=== PATIENT | male | born 1945 | race Caucasian/White ===

== ENCOUNTER 2017-03-26 11:29 | Inpatient (IN) | payer MEDICARE ==
[2017-03-26] VITALS (8 sets, daily range): BP systolic 101–203; BP diastolic 59–87; PULSE 52–61; RESP 14–20; TEMP 96.2–98.2; O2SAT 96–100
[~2017-03-26] VITALS: Ht 177.8 cm; Wt 91.5 kg
[~2017-03-26 11:29] MED LIST: ASPI81 PO; BIOT10TA PO; CHOL50006 PO; EZET10 PO; LISI-360 PO; LORTA5 PO; MAGN500T4 PO; METO50TA PO; RANI150 PO
[2017-03-26] MEDS ORDERED: SODIUM CHLORIDE 0.9% FLUSH 10 ML FLUSH IVF PRN (11:45)
[2017-03-26] MEDS ORDERED: LOSA25TA PO (11:47)
[2017-03-26] MEDS ORDERED: MULT1TAB PO (11:47)
[2017-03-26] MEDS ORDERED: ASPI325T PO (11:47)
[2017-03-26] MEDS ORDERED: ROSU1TAB6 PO (11:47)
[2017-03-26] MEDS ORDERED: RANI300C PO (11:47)
[2017-03-26] MEDS ORDERED: METO25TA3 PO (11:47)
[2017-03-26 11:58] LABS: AUTOMATED NEUTROPHIL # 9.1 TH/MM3 (1.8-7.7); BASOPHIL # 0.1 TH/MM3 (0-0.2); BASOPHIL % 0.8 % (0.0-2.0); EOSINOPHIL # 0.1 TH/MM3 (0-0.4); EOSINOPHIL % 0.6 % (0.0-4.0); HEMO FLAGS DIFF FINAL; LYMPH % 21.2 % (9.0-44.0); LYMPHOCYTE # 2.7 TH/MM3 (1.0-4.8); MEAN CELL VOLUME 88.2 FL (80.0-100.0); MEAN CORPUSCULAR HEMOGLOBIN 29.7 PG (27.0-34.0); MEAN CORPUSCULAR HGB CONC 33.7 % (32.0-36.0); MONO % 5.3 % (0.0-8.0); NEUT % 72.1 % (16.0-70.0); PLATELET COUNT 162 TH/MM3 (150-450); RED BLOOD COUNT 4.76 MIL/MM3 (4.50-5.90); RED CELL DISTRIBUTION WIDTH 14.4 % (11.6-17.2); WHITE BLOOD COUNT 12.7 TH/MM3 (4.0-11.0)
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
[2017-03-26 12:17] LABS: CREATINE KINASE 240 U/L (39-308)
[2017-03-26 12:19] LABS: APTT (PATIENT) 20.1 SEC (24.3-30.1); PROTHROMBIN TIME - PATIENT 10.7 SEC (9.8-11.6)
[2017-03-26 12:30] LABS: CKMB 4.1 NG/ML (0.5-3.6)
[2017-03-26 12:32] LABS: ANION GAP 11 MEQ/L (5-15); BLOOD UREA NITROGEN 26 MG/DL (7-18); CHLORIDE 110 MEQ/L (98-107); GLOMERULAR FILTRATION RATE 63 ML/MIN (>89); POTASSIUM 3.8 MEQ/L (3.5-5.1); SODIUM (NA) 142 MEQ/L (136-145)
--- NOTE | 2017-03-26 12:37 | RADRPT ---
EXAM DATE/TIME: 03/26/2017 12:08 [facility] COMPARISON: CHEST PA & LAT, March 04, 2015, 15:42. INDICATIONS : Shortness of breath and dizziness. MEDICAL HISTORY : None. SURGICAL HISTORY : Open heart surgery. ENCOUNTER: Initial ACUITY: 1 day PAIN SCORE: 0/10 LOCATION: Bilateral chest FINDINGS: A single view of the chest demonstrates the lungs to be symmetrically aerated without evidence of mas s, infiltrate or effusion. The cardiomediastinal contours are unremarkable. There is evidence of pre vious cardiothoracic surgery. Osseous structures are intact. CONCLUSION: No acute disease. No significant change has occurred. Tee Aviles MD on March 26, 2017 at 12:34 Board Certified Radiologist. This report was verified electronically.
[2017-03-26] MEDS ORDERED: NALOXONE HCL 0.4 MG/ML AMP IV PRN (13:15)
[2017-03-26] MEDS ORDERED: SODIUM CHLORIDE 0.9% FLUSH 10 ML FLUSH IV FLUSH PRN (13:15)
[2017-03-26] MEDS ORDERED: NITROGLYCERIN 0.4 MG SL 25 TABS/BTL SL PRN (13:30)
[2017-03-26] MEDS ORDERED: ACETAMINOPHEN 325 MG TAB PO PRN (14:00)
[2017-03-26] MEDS ORDERED: MAGNESIUM HYDROXIDE SUSP 30 ML CUP PO PRN (14:00)
[2017-03-26] MEDS ORDERED: ONDANSETRON HCL 4 MG/2 ML VIAL IVP PRN (14:00)
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
--- NOTE | 2017-03-26 18:44 | RADRPT ---
EXAM DATE/TIME: 03/26/2017 18:12 [facility] COMPARISON: No previous studies available for comparison. INDICATIONS : Syncope RADIATION DOSE: 37.50 CTDIvol (mGy) MEDICAL HISTORY : Cardiovascular disease. Hypertension. Gastroesophageal reflux disease. SURGICAL HISTORY : Appendectomy. CABG ENCOUNTER: Initial ACUITY: 1 day PAIN SCALE: LOCATION: Bilateral cranial TECHNIQUE: Multiple contiguous axial images were obtained of the head. Using automated exposure control and adj ustment of the mA and/or kV according to patient size, radiation dose was kept as low as reasonably a chievable to obtain optimal diagnostic quality images. DICOM format image data is available electro nically for review and comparison. FINDINGS: CEREBRUM: The ventricles are normal for age. There is a 1.8 cm cystic area seen in the left medial temporal lo be likely related to a choroidal fissure cyst. No evidence of midline shift, mass lesion, hemorrhage or acute infarction. No extra-axial fluid collections are seen. POSTERIOR FOSSA: The cerebellum and brainstem are intact. The 4th ventricle is midline. The cerebellopontine angle i s unremarkable. EXTRACRANIAL: The visualized portion of the orbits is intact. SKULL: The calvaria is intact. No evidence of skull fracture. CONCLUSION: No acute abnormality seen. 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 Tyler Edouard MD on March 26, 2017 at 18:39 Board Certified Radiologist. This report was verified electronically.
[2017-03-26 19:54] LABS: CREATINE KINASE 249 U/L (39-308); FREE T4 1.04 NG/DL (0.76-1.46)
--- NOTE | 2017-03-26 19:57 | RADRPT ---
EXAM DATE/TIME: 03/26/2017 19:10 [facility] COMPARISON: No previous studies available for comparison. INDICATIONS : Syncope. MEDICAL HISTORY : Hypertension. Myocardial infarction. Hypercholesterolemia. CAD. GERD. Kidney stones. SURGICAL HISTORY : Appendectomy. Open heart surgery. ENCOUNTER: Initial ACUITY: 1 day PAIN SCORE: 0/10 LOCATION: Bilateral neck PEAK SYSTOLIC VELOCITIES (cm/sec): ICA/CCA RATIO: Right: 0.9 Left: 1.3 ICA: Right: 78.5 Left: 109.0 CCA: Right: 90.1 Left: 84.5 ECA: Right: 253.8 Left: 154.8 VERTEBRAL: Right: 56.4 antegrade Left: 60.7 antegrade Elevated flow velocities and ICA/CCA ratios have been found to correlate with increased degrees of vessel stenosis, calculated as percentage of diameter relative to a normal segment of distal ICA/CCA FINDINGS: RIGHT CAROTID: No significant stenosis of the ICA is visualized. Greater than 70% stenosis is suggested by elevated systolic velocity within the right ECA. The waveforms are within normal limits. Moderate calcified a therosclerotic plaque within the right CCA. LEFT CAROTID: No significant stenosis of the ICA is visualized. 50-69% stenosis is suggested by elevated systolic velocity within the left ECA. The waveforms are within normal limits. Mild calcified atherosclerotic plaque within the left CCA. VERTEBRAL ARTERIES: Antegrade flow is seen in both vertebral arteries. MISCELLANEOUS: None. CONCLUSION: No significant stenosis of the internal carotid arteries bilaterally. Greater than 70 % stenosis of the right ECA and 50-69% stenosis of the left ECA. Anderson Miller MD on March 26, 2017 at 19:53 Board Certified Radiologist. This report was verified electronically.
[2017-03-26 20:09] LABS: MAGNESIUM 2.4 MG/DL (1.5-2.5)
[2017-03-26] MEDS: LOSARTAN 25 MG TAB PO SCH (20:46)
[2017-03-26] MEDS: ATORVASTATIN 20 MG TAB PO SCH (20:46)
[2017-03-26] MEDS: FAMOTIDINE 20 MG TAB PO SCH (20:46)
[2017-03-26] MEDS: METOPROLOL TARTRATE 25 MG TAB PO SCH (20:46)
[2017-03-26] MEDS: SODIUM CHLORIDE 0.9% FLUSH 10 ML FLUSH IV FLUSH SCH (20:47)
[2017-03-26] MEDS: 1/2 NS + KCL 20 MEQ INJ 1,000 ML IV SCH (20:50)
[2017-03-26] MEDS ORDERED: TEMAZEPAM 15 MG CAP PO PRN (21:00)
[2017-03-27] VITALS (9 sets, daily range): BP systolic 89–127; BP diastolic 52–64; PULSE 53–79; RESP 18–20; TEMP 96.9–97.8; O2SAT 97–98
[2017-03-27] MEDS: 1/2 NS + KCL 20 MEQ INJ 1,000 ML IV SCH (01:25)
[2017-03-27 02:24] LABS: AUTOMATED NEUTROPHIL # 7.6 TH/MM3 (1.8-7.7); BASOPHIL # 0.1 TH/MM3 (0-0.2); BASOPHIL % 0.5 % (0.0-2.0); EOSINOPHIL # 0.1 TH/MM3 (0-0.4); HEMATOCRIT 38.9 % (39.0-51.0); HEMO FLAGS DIFF FINAL; LYMPH % 23.6 % (9.0-44.0); LYMPHOCYTE # 2.6 TH/MM3 (1.0-4.8); MEAN CELL VOLUME 87.8 FL (80.0-100.0); MEAN CORPUSCULAR HEMOGLOBIN 29.4 PG (27.0-34.0); MEAN CORPUSCULAR HGB CONC 33.5 % (32.0-36.0); MONO % 6.5 % (0.0-8.0); NEUT % 68.4 % (16.0-70.0); PLATELET COUNT 158 TH/MM3 (150-450); RED BLOOD COUNT 4.43 MIL/MM3 (4.50-5.90); RED CELL DISTRIBUTION WIDTH 14.5 % (11.6-17.2); WHITE BLOOD COUNT 11.1 TH/MM3 (4.0-11.0)
[2017-03-27 02:39] LABS: ANION GAP 6 MEQ/L (5-15); BICARBONATE 25.6 MEQ/L (21.0-32.0); BLOOD UREA NITROGEN 21 MG/DL (7-18); CHLORIDE 109 MEQ/L (98-107); GLOMERULAR FILTRATION RATE 84 ML/MIN (>89); POTASSIUM 3.7 MEQ/L (3.5-5.1); SODIUM (NA) 141 MEQ/L (136-145)
[2017-03-27 02:43] LABS: CREATINE KINASE 151 U/L (39-308)
[2017-03-27] MEDS: ASPIRIN 325 MG TAB PO SCH (10:04)
[2017-03-27] MEDS: FAMOTIDINE 20 MG TAB PO SCH ×2 (10:04→21:35)
[2017-03-27] MEDS: METOPROLOL TARTRATE 25 MG TAB PO SCH ×2 (10:05→21:34)
--- NOTE | 2017-03-27 11:56 | HHI.PR ---
Subjective Remarks Pt reports that he has been having issues with numbness and pain in the left arm that radiates into his chest for the past 4 years intermittently but that in the last few months this has been more frequently occurring and more severe in intensity. He had a severe episode the day prior to admission. Pt was admitted after a near syncopal episode with associated nausea, diaphoresis while outside yesterday. He denies any associated chest pain at that time. Family reports that he has been having episodes similar to this with the dizziness and nausea intermittently for the last few months. It doesn't necessarily happen with exertion or with certain movements of the head. He does report that is does frequently happen with bending over. His reports that several months ago he was taken off Lisinopril for a cough and started on Cozaar and his does of Metoprolol was decreased but this did not seem to correlate with his symptoms of dizziness. Objective Vitals Vital Signs Date Time Temp Pulse Resp B/P Pulse Ox O2 Delivery O2 Flow Rate FiO2 03/27/17 08:00 97.6 60 18 127/59 98 03/27/17 06:55 97.3 53 19 107/59 98 03/27/17 05:24 97.2 56 20 89/52 97 03/27/17 01:14 97.7 66 20 100/52 97 03/26/17 23:42 61 03/26/17 21:29 97.5 58 19 101/62 96 03/26/17 16:00 96.2 52 20 121/63 100 03/26/17 12:26 61 14 134/62 03/26/17 12:24 58 14 133/66 03/26/17 12:23 59 16 117/59 03/26/17 03/26/17 03/27/17 15:00 23:00 07:00 Intake Total 792 ml Balance 792 ml Intake IV Total 792 ml # Voids 2 Result Diagram: 03/27/17 0151 03/27/17 015 Other Results Laboratory Tests Test 03/26/17 03/26/17 03/26/17 03/27/17 11:40 18:41 18:44 01:51 White Blood Count 12.7 TH/MM3 11.1 TH/MM3 Red Blood Count 4.76 MIL/MM3 4.43 MIL/MM3 Hemoglobin 14.1 GM/DL 13.0 GM/DL Hematocrit 42.0 % 38.9 % Mean Corpuscular Volume 88.2 FL 87.8 FL Mean Corpuscular Hemoglobin 29.7 PG 29.4 PG Mean Corpuscular Hemoglobin 33.7 % 33.5 % Concent Red Cell Distribution Width 14.4 % 14.5 % Platelet Count 162 TH/MM3 158 TH/MM3 Mean Platelet Volume 8.8 FL 8.3 FL Neutrophils (%) (Auto) 72.1 % 68.4 % Lymphocytes (%) (Auto) 21.2 % 23.6 % Monocytes (%) (Auto) 5.3 % 6.5 % Eosinophils (%) (Auto) 0.6 % 1.0 % Basophils (%) (Auto) 0.8 % 0.5 % Neutrophils # (Auto) 9.1 TH/MM3 7.6 TH/MM3 Lymphocytes # (Auto) 2.7 TH/MM3 2.6 TH/MM3 Monocytes # (Auto) 0.7 TH/MM3 0.7 TH/MM3 Eosinophils # (Auto) 0.1 TH/MM3 0.1 TH/MM3 Basophils # (Auto) 0.1 TH/MM3 0.1 TH/MM3 CBC Comment DIFF FINAL DIFF FINAL Differential Comment Prothrombin Time 10.7 SEC Prothromb Time International 1.0 RATIO Ratio Activated Partial 20.1 SEC Thromboplast Time Sodium Level 142 MEQ/L 141 MEQ/L Potassium Level 3.8 MEQ/L 3.7 MEQ/L Chloride Level 110 MEQ/L 109 MEQ/L Carbon Dioxide Level 21.0 MEQ/L 25.6 MEQ/L Anion Gap 11 MEQ/L 6 MEQ/L Blood Urea Nitrogen 26 MG/DL 21 MG/DL Creatinine 1.15 MG/DL 0.89 MG/DL Estimat Glomerular Filtration 63 ML/MIN 84 ML/MIN Rate Random Glucose 90 MG/DL 127 MG/DL Calcium Level 8.6 MG/DL 8.3 MG/DL Total Creatine Kinase 240 U/L 249 U/L 151 U/L Creatine Kinase MB 4.1 NG/ML Troponin I LESS THAN 0.02 LESS THAN 0.02 LESS THAN 0.02 NG/ML NG/ML NG/ML B-Type Natriuretic Peptide 91 PG/ML Magnesium Level 2.4 MG/DL Vitamin B12 Level 748 PG/ML Folate GREATER THAN 20.0 NG/ML Free Thyroxine 1.04 NG/DL Thyroid Stimulating Hormone 1.120 uIU/ML 3rd Gen Ammonia 19 MCMOL/L Imaging Last Impressions Chest X-Ray 03/26/17 1139 Signed Impressions: Service Date/Time: Sunday, March 26, 2017 12:08 - CONCLUSION: No acute disease. No significant change has occurred. Tee Aviles MD Head CT 03/26/17 0000 Signed Impressions: Service Date/Time: Sunday, March 26, 2017 18:12 - CONCLUSION: No acute abnormality seen. 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 Tyler Edouard MD Carotid Artery Ultrasound 03/26/17 0000 Signed Impressions: Service Date/Time: Sunday, March 26, 2017 19:10 - CONCLUSION: No significant stenosis of the internal carotid arteries bilaterally. Greater than 70%% stenosis of the right ECA and 50-69%% stenosis of the left ECA. Anderson Miller MD Last Impressions Chest X-Ray 03/26/17 1139 Signed Impressions: Service Date/Time: Sunday, March 26, 2017 12:08 - CONCLUSION: No acute disease. No significant change has occurred. Tee Aviles MD Objective Remarks General: NAD, AAOx3 Chest: CTA Cardiac: Regular Abd: +BS, soft ND/NT Ext: No edema Neuro: No appreciable weakness in the UE bilaterally A/P Problem List: (1) Near syncope Status: Acute Plan: - Pt is a 71 y/o with CAD/Hx of [place] s/p CABG in 1994, HTN, hyperlipidemia, and KYRA. - Pt presented after a near syncopal episode with associated nausea, diaphoresis while outside yesterday. He denies any associated chest pain at that time. Family reports that he has been having episodes similar to this with the dizziness and nausea intermittently for the last few months. It doesn't necessarily happen with exertion or with certain movements of the head. He does report that is does frequently happen with bending over. - He also has reported that he has been having issues with numbness and pain in the left arm that radiates into his chest for the past 4 years intermittently but that in the last few months this has been more frequently occurring and more severe in intensity. He had a severe episode the day prior to admission. Pt reports that he has had issues with her cervical spine in the past and had previously seen a Neurologist 4 years ago regarding this. - CT brain (03/26) --> No acute abnormal findings. - Carotid US (03/26) --> No significant stenosis of the internal carotid arteries bilaterally. Greater than 70% stenosis of the right ECA and 50-69% stenosis of the left ECA. - TSH, free T4, b12, folate are WNL - Telemetry without any abnormalities as of 03/27 - 2D echocardiogram --> pending. - Holter Monitor --> Pending. - PT evaluation - Serial cardiac enzymes were negative. - He had a previous myocardial perfusion scan on 03-05-15 that showed mild redistribution along the anterolateral wall with an EF of 61%. He had a cardiac cath on 03-05-15 and it showed a patent SVG to the RCA (the RCA was totally occluded at its origin). The LAD and circumflex were normal. - Check Lexiscan today - Check MRI cervical spine - DVT prophylaxis with SCDs (2) CAD (coronary artery disease) Status: Acute Plan: - h/o 1V CABG in the - last [facility] 2014 - ASA, metoprolol, crestor (3) GERD (gastroesophageal reflux disease) Status: Chronic Plan: - ranitidine (4) HTN (hypertension) Status: Chronic Plan: - metoprolol, losartan (5) CKD (chronic kidney disease) stage 2, GFR 60-89 ml/min Status: Chronic Plan: - observe Assessment and Plan Patient examined. Assessment and plan formulated with Rosa M Vazquez PA-C. I agree with the above. pt with sx's of cp/left arm pains, intermittent diaphoresis and nausea. yesterday became very weak in legs and nearly passed out. says some sx's are similar to previous cad. Also he had some sort of cervical spine issue in past which may have been compromising cervical nerve roots. will get lexiscan and also image c spine for compression of cervical nerves. Problem Qualifiers (1) CAD (coronary artery disease): Qualified Code: I25.10 - Coronary artery disease involving [place] heart without angina pectoris, unspecified vessel or lesion type (2) GERD (gastroesophageal reflux disease): Qualified Code: K21.9 - Gastroesophageal reflux disease, esophagitis presence not specified (3) HTN (hypertension): Qualified Code: I10 - Essential hypertension Rosa M Vazquez Mar 27, 2017 11:56 Tevin Saxena MD Mar 27, 2017 12:02
[2017-03-27 14:46] LABS: RAPID PLASMA REAGIN SCREEN NON-REACTIVE (NON-REACTVE)
--- NOTE | 2017-03-27 17:39 | ECHRPT ---
Indication: syncope CONCLUSIONS Technically difficult echocardiogram. In limited views, the left ventricular systolic function is low normal with an estimated ejection fr action in the range of 50-55%. Mild concentric left ventricular hypertrophy. Trace mitral valve regurgitation. There is trace tricuspid valve regurgitation. BP: / HR: Rhythm: MEASUREMENTS (Male / Female) Normal Values Technical Quality:Fair 2D ECHO LV Diastolic Diameter PLAX 5.1 cm 4.2 - 5.9 / 3.9 - 5.3 cm LV Systolic Diameter PLAX 4.0 cm IVS Diastolic Thickness 1.5 cm 0.6 - 1.0 / 0.6 - 0.9 cm LVPW Diastolic Thickness 1.3 cm 0.6 - 1.0 / 0.6 - 0.9 cm LV Relative Wall Thickness 0.6 RV Internal Dim ED PLAX 3.0 cm M-MODE Aortic Root Diameter MM 3.0 cm LA Systolic Diameter MM 4.2 cm LA Ao Ratio MM 1.4 AV Cusp Separation MM 2.0 cm DOPPLER Mitral E Point Velocity 58.2 cm/s Mitral A Point Velocity 54.3 cm/s Mitral E to A Ratio 1.1 LV E' Lateral Velocity 14.0 cm/s Mitral E to LV E' Lateral Ratio 4.2 LV E' Septal Velocity 10.3 cm/s Mitral E to LV E' Septal Ratio 5.7 TR Peak Velocity 263.0 cm/s TR Peak Gradient 27.7 mmHg FINDINGS LEFT VENTRICLE Normal left ventricular size. Mild concentric left ventricular hypertrophy. In limited views, the left ventricular systolic function is low normal with an estimated ejection fr action in the range of 50-55%. RIGHT VENTRICLE The right ventricle was not well visualized. LEFT ATRIUM The left atrial size is mildly dilated. RIGHT ATRIUM The right atrium is not well visualized. ATRIAL SEPTUM The interatrial septum not well visualized. AORTA The aortic root and proximal ascending aorta are normal in size on limited imaging. MITRAL VALVE Structurally normal mitral valve. Trace mitral valve regurgitation. AORTIC VALVE Trileaflet aortic valve. No aortic valve stenosis or regurgitation. TRICUSPID VALVE Structurally normal tricuspid valve. There is trace tricuspid valve regurgitation. PULMONARY VALVE The pulmonary valve is not well visualized. VESSELS The inferior vena cava is normal in size. PERICARDIUM No pericardial effusion. Sebas Wells DO (Electronically Signed) Final Date:27 March 2017 17:38
[2017-03-27] MEDS: LOSARTAN 25 MG TAB PO SCH (21:34)
[2017-03-27] MEDS: SODIUM CHLORIDE 0.9% FLUSH 10 ML FLUSH IV FLUSH SCH (21:35)
[2017-03-27] MEDS: ATORVASTATIN 20 MG TAB PO SCH (21:35)
--- NOTE | 2017-03-27 21:45 | RADRPT ---
EXAM DATE/TIME: 03/27/2017 20:50 [facility] COMPARISON: No previous studies available for comparison. INDICATIONS : Radiculopathy. MEDICAL HISTORY : Myocardial infarction. Hypercholesterolemia. SURGICAL HISTORY : CABG Appendectomy. Hernia repair. Bilateral feet and shoulders. Hand. Ankle. ENCOUNTER: Subsequent ACUITY: 2 day PAIN SCORE: 5/10 LOCATION: neck TECHNIQUE: Multiplanar, multisequence MRI examination of the cervical spine was performed. FINDINGS: VERTEBRAE: Normal vertebral body height. Homogeneous marrow signal. ALIGNMENT: No evidence of subluxation. DISCS: There is mild desiccation. Anterior extradural defects noted on the sagittal images at the C3-4 through C6-7 levels. CORD: Normal configuration and signal. POST FOSSA: The cerebellar tonsils are normal in position. C2-C3: The thecal sac has a normal configuration. There is no evidence of disc herniation or spinal canal s tenosis. The neural foramina are patent bilaterally. C3-C4: There is a mild disc bulge with flattening of the anterior thecal sac and slight flattening of the an terior cord with no abnormal signal. CSF is present posterior to the cord.. The neural foramina are patent bilaterally. C4-C5: Annular disc bulge with mild flattening of the anterior cord. There is minimal residual CSF surroundi ng the cord with a residual AP diameter of the canal measuring approximately 8 mm. There is mild narr owing of the neural foramina. C5-C6: Annular disc bulge which meets the anterior cord with slight flattening and no abnormal signal. The C SF space surrounding of the cord is obliterated and the residual AP diameter now measures approximate ly 8-9 mm. There is moderate narrowing of the neural foramina bilaterally. C6-C7: A mild annular disc bulge with mild flattening of the intrathecal sac with no mass effect upon the co rd. C7-T1: The thecal sac has a normal configuration. There is no evidence of disc herniation or spinal canal s tenosis. The neural foramina are patent bilaterally. CONCLUSION: 1. Central canal stenosis at the C5-6 level secondary to disc bulge with obliteration of the CSF surr ounding the cord. 2. Borderline central canal stenosis at the C4-5 level secondary to disc bulge. 3. Mild disc bulge at C3-4 with mild flattening of the anterior cord. 4. Mild disc bulge at C6-7. 5. Narrowing of the neural foramina bilaterally at C5-6 and C4-5. Boone Sykes MD on March 27, 2017 at 21:35 Board Certified Radiologist. This report was verified electronically.
[2017-03-28] VITALS (8 sets, daily range): BP systolic 110–157; BP diastolic 56–69; PULSE 54–71; RESP 18–20; TEMP 96.7–98.1; O2SAT 96–100
--- NOTE | 2017-03-28 07:46 | EKG ---
Date Performed: 03/27/2017 Time Performed: 01:04:32 PTAGE: 71 years EKG: SINUS BRADYCARDIA INFERIOR MYOCARDIAL INFARCTION , PROBABLY OLD WITH POSTERIOR EXTENSION AB NORMAL ECG PREVIOUS TRACING : 03/26/2017 19.34 DOCTOR: Harjinder Goetz Interpretating Date/Time 03/28/2017 07:43:13
--- NOTE | 2017-03-28 07:54 | EKG ---
Date Performed: 03/26/2017 Time Performed: 19:34:21 PTAGE: 71 years EKG: Sinus rhythm WITH OCCASIONAL VENTRICULAR PREMATURE COMPLEXES INFERIOR MYOCARDIAL INFARCTION , PROBABLY OLD WITH P OSTERIOR EXTENSION ABNORMAL ECG PREVIOUS TRACING : 03/26/2017 11.35 DOCTOR: Harjinder Goetz Interpretating Date/Time 03/28/2017 07:54:13
--- NOTE | 2017-03-28 08:43 | EKG ---
Date Performed: 03/26/2017 Time Performed: 11:35:41 PTAGE: 71 years EKG: SINUS BRADYCARDIA POSSIBLE RIGHT VENTRICULAR CONDUCTION DELAY INFERIOR MYOCARDIAL INFARCTIO N ABNORMAL ECG PREVIOUS TRACING : 03/04/2015 21.38 DOCTOR: Harjinder Goetz Interpretating Date/Time 03/28/2017 08:41:12
[2017-03-28] MEDS ORDERED: REGADENOSON INJ 0.4 MG/5 ML SYR ONE (09:50)
--- NOTE | 2017-03-28 10:03 | HHI.PR ---
Subjective Remarks Pt down for Blaze, will re-evaluate this afternoon Objective Vitals Vital Signs Date Time Temp Pulse Resp B/P Pulse Ox O2 Delivery O2 Flow Rate FiO2 03/28/17 05:32 97.3 54 20 112/56 97 03/28/17 01:29 97.4 63 20 112/59 97 03/27/17 20:56 96.9 60 20 115/56 97 03/27/17 19:53 79 03/27/17 16:00 97.8 55 20 117/61 97 03/27/17 12:00 97.3 58 18 119/64 98 03/27/17 03/27/17 03/28/17 15:00 23:00 07:00 Intake Total 580 ml Balance 580 ml Intake Oral 580 ml # Voids 3 1 # Bowel Movements 1 Result Diagram: 03/27/17 01503/27/17 015 Other Results Laboratory Tests Test 03/26/17 03/26/17 03/26/17 03/27/17 11:40 18:41 18:44 01:51 White Blood Count 12.7 TH/MM3 11.1 TH/MM3 Red Blood Count 4.76 MIL/MM3 4.43 MIL/MM3 Hemoglobin 14.1 GM/DL 13.0 GM/DL Hematocrit 42.0 % 38.9 % Mean Corpuscular Volume 88.2 FL 87.8 FL Mean Corpuscular Hemoglobin 29.7 PG 29.4 PG Mean Corpuscular Hemoglobin 33.7 % 33.5 % Concent Red Cell Distribution Width 14.4 % 14.5 % Platelet Count 162 TH/MM3 158 TH/MM3 Mean Platelet Volume 8.8 FL 8.3 FL Neutrophils (%) (Auto) 72.1 % 68.4 % Lymphocytes (%) (Auto) 21.2 % 23.6 % Monocytes (%) (Auto) 5.3 % 6.5 % Eosinophils (%) (Auto) 0.6 % 1.0 % Basophils (%) (Auto) 0.8 % 0.5 % Neutrophils # (Auto) 9.1 TH/MM3 7.6 TH/MM3 Lymphocytes # (Auto) 2.7 TH/MM3 2.6 TH/MM3 Monocytes # (Auto) 0.7 TH/MM3 0.7 TH/MM3 Eosinophils # (Auto) 0.1 TH/MM3 0.1 TH/MM3 Basophils # (Auto) 0.1 TH/MM3 0.1 TH/MM3 CBC Comment DIFF FINAL DIFF FINAL Differential Comment Prothrombin Time 10.7 SEC Prothromb Time International 1.0 RATIO Ratio Activated Partial 20.1 SEC Thromboplast Time Sodium Level 142 MEQ/L 141 MEQ/L Potassium Level 3.8 MEQ/L 3.7 MEQ/L Chloride Level 110 MEQ/L 109 MEQ/L Carbon Dioxide Level 21.0 MEQ/L 25.6 MEQ/L Anion Gap 11 MEQ/L 6 MEQ/L Blood Urea Nitrogen 26 MG/DL 21 MG/DL Creatinine 1.15 MG/DL 0.89 MG/DL Estimat Glomerular Filtration 63 ML/MIN 84 ML/MIN Rate Random Glucose 90 MG/DL 127 MG/DL Calcium Level 8.6 MG/DL 8.3 MG/DL Total Creatine Kinase 240 U/L 249 U/L 151 U/L Creatine Kinase MB 4.1 NG/ML Troponin I LESS THAN 0.02 LESS THAN 0.02 LESS THAN 0.02 NG/ML NG/ML NG/ML B-Type Natriuretic Peptide 91 PG/ML Magnesium Level 2.4 MG/DL Vitamin B12 Level 748 PG/ML Folate GREATER THAN 20.0 NG/ML Free Thyroxine 1.04 NG/DL Thyroid Stimulating Hormone 1.120 uIU/ML 3rd Gen Rapid Plasma Reagin NON-REACTIVE Ammonia 19 MCMOL/L Imaging Last Impressions Cervical Spine MRI 03/27/17 0000 Signed Impressions: Service Date/Time: Monday, March 27, 2017 20:50 - CONCLUSION: 1. Central canal stenosis at the C5-6 level secondary to disc bulge with obliteration of the CSF surrounding the cord. 2. Borderline central canal stenosis at the C4-5 level secondary to disc bulge. 3. Mild disc bulge at C3-4 with mild flattening of the anterior cord. 4. Mild disc bulge at C6-7. 5. Narrowing of the neural foramina bilaterally at C5-6 and C4-5. Boone Sykes MD Chest X-Ray 03/26/17 1139 Signed Impressions: Service Date/Time: Sunday, March 26, 2017 12:08 - CONCLUSION: No acute disease. No significant change has occurred. Tee Aviles MD Head CT 03/26/17 0000 Signed Impressions: Service Date/Time: Sunday, March 26, 2017 18:12 - CONCLUSION: No acute abnormality seen. 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 Tyler Edouard MD Carotid Artery Ultrasound 03/26/17 0000 Signed Impressions: Service Date/Time: Sunday, March 26, 2017 19:10 - CONCLUSION: No significant stenosis of the internal carotid arteries bilaterally. Greater than 70%% stenosis of the right ECA and 50-69%% stenosis of the left ECA. Anderson Miller MD Last Impressions Chest X-Ray 03/26/17 1139 Signed Impressions: Service Date/Time: Sunday, March 26, 2017 12:08 - CONCLUSION: No acute disease. No significant change has occurred. Tee Aviles MD Head CT 03/26/17 0000 Signed Impressions: Service Date/Time: Sunday, March 26, 2017 18:12 - CONCLUSION: No acute abnormality seen. 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 Tyler Edouard MD Carotid Artery Ultrasound 03/26/17 0000 Signed Impressions: Service Date/Time: Sunday, March 26, 2017 19:10 - CONCLUSION: No significant stenosis of the internal carotid arteries bilaterally. Greater than 70%% stenosis of the right ECA and 50-69%% stenosis of the left ECA. Anderson Miller MD Last Impressions Chest X-Ray 03/26/17 1139 Signed Impressions: Service Date/Time: Sunday, March 26, 2017 12:08 - CONCLUSION: No acute disease. No significant change has occurred. Tee Aviles MD Objective Remarks General: NAD, AAOx3 Chest: CTA Cardiac: Regular Abd: +BS, soft ND/NT Ext: No edema Neuro: No appreciable weakness in the UE bilaterally A/P Problem List: (1) Near syncope Status: Acute Plan: - Pt is a 71 y/o with CAD/Hx of [place] s/p CABG in 1994, HTN, hyperlipidemia, and KYRA. - Pt presented after a near syncopal episode with associated nausea, diaphoresis while outside yesterday. He denies any associated chest pain at that time. Family reports that he has been having episodes similar to this with the dizziness and nausea intermittently for the last few months. It doesn't necessarily happen with exertion or with certain movements of the head. He does report that is does frequently happen with bending over. - He also has reported that he has been having issues with numbness and pain in the left arm that radiates into his chest for the past 4 years intermittently but that in the last few months this has been more frequently occurring and more severe in intensity. He had a severe episode the day prior to admission. Pt reports that he has had issues with her cervical spine in the past and had previously seen a Neurologist 4 years ago regarding this. - CT brain (03/26) --> No acute abnormal findings. - Carotid US (03/26) --> No significant stenosis of the internal carotid arteries bilaterally. Greater than 70% stenosis of the right ECA and 50-69% stenosis of the left ECA. - TSH, free T4, b12, folate are WNL - Telemetry without any abnormalities as of 03/27 - 2D echocardiogram --> pending. - Holter Monitor --> Pending. - PT evaluation - Serial cardiac enzymes were negative. - He had a previous myocardial perfusion scan on 03-05-15 that showed mild redistribution along the anterolateral wall with an EF of 61%. He had a cardiac cath on 03-05-15 and it showed a patent SVG to the RCA (the RCA was totally occluded at its origin). The LAD and circumflex were normal. - Await Lexiscan today - MRI cervical spine (03/27) --> Central canal stenosis at the C5-6 level secondary to disc bulge with obliteration of the CSF surrounding the cord. Borderline central canal stenosis at the C4-5 level secondary to disc bulge. Mild disc bulge at C3-4 with mild flattening of the anterior cord. Mild disc bulge at C6-7. Narrowing of the neural foramina bilaterally at C5-6 and C4-5. - Consult Neurosurgery - DVT prophylaxis with SCDs (2) CAD (coronary artery disease) Status: Acute Plan: - h/o 1V CABG in the - last [facility] 2014 - ASA, metoprolol, crestor (3) GERD (gastroesophageal reflux disease) Status: Chronic Plan: - ranitidine (4) HTN (hypertension) Status: Chronic Plan: - metoprolol, losartan (5) CKD (chronic kidney disease) stage 2, GFR 60-89 ml/min Status: Chronic Plan: - observe Assessment and Plan Patient examined. Assessment and plan formulated with Rosa M Vazquez PA-C. I agree with the above. syncope. left arm radiculopathy and spasms. lexiscan neg for ischemia mri c spine shows cervical stenosis and haresh foraminal stenosis. will ask nsg opinion. Problem Qualifiers (1) CAD (coronary artery disease): Qualified Code: I25.10 - Coronary artery disease involving [place] heart without angina pectoris, unspecified vessel or lesion type (2) GERD (gastroesophageal reflux disease): Qualified Code: K21.9 - Gastroesophageal reflux disease, esophagitis presence not specified (3) HTN (hypertension): Qualified Code: I10 - Essential hypertension Rosa M Vazquez Mar 28, 2017 10:03 Tevin Saxena MD Mar 28, 2017 11:39
[2017-03-28] MEDS: FAMOTIDINE 20 MG TAB PO SCH ×2 (10:39→21:48)
[2017-03-28] MEDS: ASPIRIN 325 MG TAB PO SCH (10:39)
--- NOTE | 2017-03-28 10:47 | RADRPT ---
EXAM DATE/TIME: 03/28/2017 08:49 [facility] COMPARISON: MYOCARDIAL PERF PHARM SPECT, GATED W/EF, March 05, 2015, 9:22. INDICATIONS : Left arm pain radiating to the chest. Angina. Coronary artery disease. DOSE: 25.4 mCi Tc99m Myoview at stress. 8.2 mCi Tc99m Myoview at rest. 0.4 mg Lexiscan STRESS SYMPTOMS: Shortness of breath and hot. EJECTION FRACTION: 60% MEDICAL HISTORY : Myocardial infarction. Carcinoma, basal cell. SURGICAL HISTORY : CABG Ankle fusion. ENCOUNTER: Initial ACUITY: 1 day PAIN SCALE: 2/10 LOCATION: Bilateral chest TECHNIQUE: The patient underwent pharmacologic stress with infusion of prescribed dose. Continuous ECG tracing was monitored during stress. Gated SPECT imaging was performed after stress and conventional SPECT i maging was performed at rest. The examination was performed on a SPECT/CT scanner, both attenuation and non-corrected datasets were reviewed. FINDINGS: DISTRIBUTION: The maximum perfused segment at stress is in the septum. PERFUSION STUDY: There is a small area of mildly diminished relative perfusion involving the inferolateral and lateral apical region with no evidence of redistribution. GATED STUDY: There is intact wall motion and thickening without hypokinetic or dyskinetic segments. CONCLUSION: Small fixed inferolateral perfusion abnormality. RISK CATEGORY: Low (<1% Annual Mortality Rate) Tyler Doe MD on March 28, 2017 at 10:36 Board Certified Radiologist. This report was verified electronically.
[2017-03-28] MEDS: METOPROLOL TARTRATE 25 MG TAB PO SCH ×2 (12:32→21:00)
--- NOTE | 2017-03-28 17:28 | HM ---
Date Performed: 03/26/2017 Time Performed: 19:49:00 HOOKUP DATE: 03/26/17 07:49:00 PM Sun ANALYSIS START TIME: 03/26/2017 7:54:00 PM ANALYSIS END TIME: 03/27/2017 7:56:03 PM PATIENT AGE: 71 PATIENT HEIGHT PATIENT WEIGHT DRUG LIST PATIENT DIAGNOSIS: cardiac TEST NARRATIVE: The patient's average heart rate was 60 BPM. No episodes of tachycardia wer e noted. Heart rates less than 50 BPM were noted 3% of the time. No pauses exceeding 2.0 seconds were noted. 1251 ventricular ectopics, which represented 1% of the total beat count, were noted. The highest ventricular ectopic frequency occurred from 06:00 PM to 07:00 PM Mon. During this time 92 VE(s) occurred. Ventricular ectopics were observed as 1235 isolated beat(s) and as 8 couplet(s). No runs were noted. 13 supraventricular ectopics, which represented < 1% of the total beat coun t, were noted. The highest supraventricular ectopic frequency occurred from 02:00 PM to 03:00 PM Mon . During this time 5 SVE(s) occurred. No episodes of ST depression (defined as -1.0 mm or more) were noted in channel 1. No episodes of ST depression (defined as -1.0 mm or more) were noted in candace nnel 2. No episodes of ST depression (defined as -1.0 mm or more) were noted in channel 3. no sympto ms recorded in diary TEST INTERPRETATION: Patient was monitored 24 hours and 2 minutes. Patients was in normal Sinus rhythm . Average heart rate was 60 bpm. Periods of sinus bradycardia to 47 bpm at 1:11 pm and maximum heart rate 99 bpm. 1235 PVCs, 8 PACs, 8 ventricular couplets. 1 3-beat run of PACs. Signed by : Manish White
--- NOTE | 2017-03-28 19:27 | MB ---
cc: BHAVANI HERRERA M.D., ROHIT K. M.D. DATE OF CONSULTATION: 03/28/2017 REASON FOR CONSULTATION: Cervical stenosis. HISTORY OF PRESENT ILLNESS 71-year-old gentleman with a chronic history of neck pain with radiation into the left upper extremity diffusely on the whole hand and occasionally on the right side also. He relates that he has had these symptoms for the past four years which have been progressively worsening. He also noticed a cramping in his hands at night time especially, and with any activity severe pain from his neck to the left upper extremity in particular. He suffers from chronic vertigo, dizziness and lightheadedness. He has some unsteadiness related to that. He denies any bowel or bladder incontinence. He relates seeing Dr. Tomlin from neurology several years ago. She informed him that he had pinched nerves in his neck and recommended neurosurgical evaluation but he held off on that. He also saw Dr. Ferrer from hand surgery over a year ago for similar complaints in the left upper extremity, and for the possibility of thoracic outlet syndrome, which he did not think was the case and felt that this was coming from his cervical spine and also recommended neurosurgical intervention. He relates that he has had physical therapy in the past which has not helped, and any activity seems to aggravate his symptoms and he cannot live with the current level of discomfort and activity restriction and his and son are at the bedside and agree with this. The relates that she has been trying to get him to see a neurosurgeon for several years. He was admitted on 03/26/2017 after he presented to the emergency room with complaints of near-syncopal episode after working in his yard and felt that he may be dehydrated, was nauseous and diaphoretic. He also complained of neck pain radiating to the left upper extremity along with a brief episode of chest pain. Cardiac workup has been negative with troponin levels of less than 0.02 and he also had a myocardial perfusion, nuclear medicine, cardiac scan which reveals a small fixed inferolateral perfusion abnormality. He was on chronic aspirin therapy which he stopped two weeks ago since he was bruising all over, although has been resumed since his admission. Carotid ultrasound does not reveal any internal carotid artery stenosis with external carotid artery right greater than left stenosis. Echocardiogram revealed an ejection fraction of 50-55% with normal left ventricular size and mild left ventricular hypertrophy. Apparently he also had a cardiac catheterization done in July 2015 which did not reveal any significant coronary stenosis. MRI scan was also obtained yesterday which reveals a moderate cervical spinal stenosis at C4-C5 from a central disk osteophyte complexes as well as C5-C6 with significant left-sided C5-6 foraminal stenosis. The spinal canal at both levels is reduced down to less than 8 mm. There is a mild C3-C4 central disk protrusion and mild stenosis but no cord compression is noted. Mild disk protrusion at C6-C7 level also. Neurosurgery has been consulted for the management of this cervical stenosis. PAST MEDICAL HISTORY, PAST SURGICAL HISTORY: Coronary artery disease, history of myocardial infarction and coronary artery bypass grafting in , hypertension, hyperlipidemia, sleep apnea on C-PAP, gastroesophageal reflux, chronic kidney disease stage II, colonic polyps, left ankle arthrodesis, appendectomy, right sacroiliac joint arthrodesis, cataract removal, rotator cuff repair, umbilical hernia repair. CURRENT MEDICATIONS 1. Aspirin and 25 mg daily. 2. Cozaar 25 mg q.h.s. 3. Lopressor 25 mg b.i.d. 4. Pepcid 20 mg b.i.d. 5. Lipitor 20 mg q.h.s. ALLERGIES ARE TO CODEINE. SOCIAL HISTORY: He is . His is here with him. 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 LABORATORY STUDIES: White blood cell count 11.1, hemoglobin 13, platelet count of 158, PT 10.7, INR 1.0, PT 20.1. Sodium 141, potassium 3.7, BUN 21, creatinine 0.89, GFR on admission was 63. Currently is 84. REVIEW OF SYSTEMS Chronic neck pain with bilateral cramps in his hands as well as severe pain which is an intermittent in the left upper extremity diffusely. Chronic vertigo, unsteadiness in his gait. He bruises easily. No fevers or chills. No recent weight gain or weight loss. Denies any incontinence as well as some subjective weakness in the left more than right hand. No chest pain or shortness of breath. No abdominal pain. No nausea, vomiting, no double vision or blurred vision. PHYSICAL EXAMINATION: Vital signs: Temperature 96.7, pulse is 71, respiratory rate 18, blood pressure 157/69, oxygen saturation 97% on room air. Head: Normocephalic, atraumatic. Neck: Supple. Chest: Clear bilaterally. Heart: Regular rate rhythm, normal S1-S2. Abdomen: Soft, nontender. Extremities: No edema or deformity. He has extensive ecchymosis and bruises. Neurologic: He is awake, alert. He is oriented x3. Cranial nerves are grossly intact, motor strength overall 5/5 in the upper and lower extremities. Negative Babinski. The right side is equivocal, on the left side no Kim's. Appreciates light touch sensation in the upper and lower extremities. IMPRESSION Cervical stenosis, in particular C4-C5, C5-C6 with disk osteophyte complex and spinal cord compression with associated foraminal stenosis. He has progressively worsening neck pain along with radiculopathy C6-C7 left more than right. Medical comorbidities as mentioned above. PLAN: Treatment options were discussed at length with the patient and his and son at the bedside. These include continued conservative measures with physical therapy as well as interventional pain management with cervical epidural steroid injections. He does not seem to be inclined to continue with the conservative route and inquired about surgical options which would entail anterior C4-C5 and C5-C6 microdiskectomy, foraminotomy, and body fusion with plate placement. The risks and benefits involved were discussed. No guarantees given. I have asked him to contemplate his options and inform us accordingly. MD ERLIN White/WENCESLAO /1:55 PM /6:45 PM
[2017-03-28] MEDS: LOSARTAN 25 MG TAB PO SCH ×2 (21:00→21:48)
[2017-03-28] MEDS: SODIUM CHLORIDE 0.9% FLUSH 10 ML FLUSH IV FLUSH SCH (21:00)
[2017-03-28] MEDS: ATORVASTATIN 20 MG TAB PO SCH (21:48)
[2017-03-29] VITALS (8 sets, daily range): BP systolic 117–145; BP diastolic 58–76; PULSE 54–73; RESP 17–18; TEMP 97–98.7; O2SAT 97–99
[2017-03-29] MEDS: ASPIRIN 325 MG TAB PO SCH (09:00)
[2017-03-29] MEDS: SODIUM CHLORIDE 0.9% FLUSH 10 ML FLUSH IV FLUSH SCH (09:00)
[2017-03-29] MEDS: METOPROLOL TARTRATE 25 MG TAB PO SCH ×2 (09:10→21:00)
[2017-03-29] MEDS: FAMOTIDINE 20 MG TAB PO SCH ×2 (09:10→22:13)
--- NOTE | 2017-03-29 09:56 | HHI.NSPN ---
History Chief Complaint: Neck pain and UE pain. Interval History 71-year-old gentleman with a chronic history of neck pain with radiation into the left upper extremity diffusely on the whole hand and occasionally on the right side also. He relates that he has had these symptoms for the past four years which have been progressively worsening. He also noticed a cramping in his hands at night time especially, and with any activity severe pain from his neck to the left upper extremity in particular. He suffers from chronic vertigo, dizziness and lightheadedness. He has some unsteadiness related to that. He denies any bowel or bladder incontinence. He relates seeing Dr. Tomlin from neurology several years ago. She informed him that he had pinched nerves in his neck and recommended neurosurgical evaluation but he held off on that. He also saw Dr. Ferrer from hand surgery over a year ago for similar complaints in the left upper extremity, and for the possibility of thoracic outlet syndrome, which he did not think was the case and felt that this was coming from his cervical spine and also recommended neurosurgical intervention. He relates that he has had physical therapy in the past which has not helped, and any activity seems to aggravate his symptoms and he cannot live with the current level of discomfort and activity restriction and his and son are at the bedside and agree with this. The relates that she has been trying to get him to see a neurosurgeon for several years. He was admitted on 03/26/2017 after he presented to the emergency room with complaints of near-syncopal episode after working in his yard and felt that he may be dehydrated, was nauseous and diaphoretic. He also complained of neck pain radiating to the left upper extremity along with a brief episode of chest pain. Cardiac workup has been negative with troponin levels of less than 0.02 and he also had a myocardial perfusion, nuclear medicine, cardiac scan which reveals a small fixed inferolateral perfusion abnormality. He was on chronic aspirin therapy which he stopped two weeks ago since he was bruising all over, although has been resumed since his admission. Carotid ultrasound does not reveal any internal carotid artery stenosis with external carotid artery right greater than left stenosis. Echocardiogram revealed an ejection fraction of 50-55% with normal left ventricular size and mild left ventricular hypertrophy. Apparently he also had a cardiac catheterization done in July 2015 which did not reveal any significant coronary stenosis. MRI scan was also obtained yesterday which reveals a moderate cervical spinal stenosis at C4-C5 from a central disk osteophyte complexes as well as C5-C6 with significant left-sided C5-6 foraminal stenosis. The spinal canal at both levels is reduced down to less than 8 mm. There is a mild C3-C4 central disk protrusion and mild stenosis but no cord compression is noted. Mild disk protrusion at C6-C7 level also. Neurosurgery has been consulted for the management of this cervical stenosis. 03/29/17: Pt awake and alert. Complains of intermittent neck pain and bilateral UE pain left more than right. States pain radiates into the lateral aspect of the UEs with associated paresthesias and radiates into the hands. Intermittently gets cramping in his hands bilaterally. Review of Systems General: Negative for: fever, chills, insomnia Respiratory: Negative for: shortness of breath, cough, sputum Cardiovascular: Negative for: chest pain Gastrointestinal: Negative for: nausea, vomitting, diarrhea, constipation Exam Results Vital Signs Date Time Temp Pulse Resp B/P Pulse Ox O2 Delivery O2 Flow Rate FiO2 03/29/17 08:00 97.7 73 17 128/76 98 03/26/17 11:36 Room Air Intake and Output 03/28/17 03/28/17 03/29/17 08:00 16:00 00:00 Intake Total 120 ml Balance 120 ml Physical Examination Resp: CTA bilaterally Heart: NSR no murmurs Abd: Soft positive bs Skin: No cyanosis or erythema Muscle: Moves all 4 extremities well. Neuro: Pt awake and alert. Follows commands well. Speech clear and appropriate. Lab, Micro, Other Results Last Impressions Myocardial Perfusion Scan Nuc Med 03/28/17 0000 Signed Impressions: Service Date/Time: Tuesday, March 28, 2017 08:49 - CONCLUSION: Small fixed inferolateral perfusion abnormality. RISK CATEGORY: Low (<1%% Annual Mortality Rate) Tyler Doe MD Cervical Spine MRI 03/27/17 0000 Signed Impressions: Service Date/Time: Monday, March 27, 2017 20:50 - CONCLUSION: 1. Central canal stenosis at the C5-6 level secondary to disc bulge with obliteration of the CSF surrounding the cord. 2. Borderline central canal stenosis at the C4-5 level secondary to disc bulge. 3. Mild disc bulge at C3-4 with mild flattening of the anterior cord. 4. Mild disc bulge at C6-7. 5. Narrowing of the neural foramina bilaterally at C5-6 and C4-5. Boone Sykes MD Chest X-Ray 03/26/17 1139 Signed Impressions: Service Date/Time: Sunday, March 26, 2017 12:08 - CONCLUSION: No acute disease. No significant change has occurred. Tee Aviles MD Head CT 03/26/17 0000 Signed Impressions: Service Date/Time: Sunday, March 26, 2017 18:12 - CONCLUSION: No acute abnormality seen. 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 Tyler Edouard MD Carotid Artery Ultrasound 03/26/17 0000 Signed Impressions: Service Date/Time: Sunday, March 26, 2017 19:10 - CONCLUSION: No significant stenosis of the internal carotid arteries bilaterally. Greater than 70%% stenosis of the right ECA and 50-69%% stenosis of the left ECA. Anderson Miller MD 03/28/17 03/28/17 03/29/17 15:00 23:00 07:00 Intake Total 120 ml Balance 120 ml Intake Oral 120 ml # Voids 5 1 # Bowel Movements 1 Medical Decision Making Impression and Plan A: 71 y/o M with cervical stenosis, in particular C4-C5, C5-C6 with disk osteophyte complex and spinal cord compression with associated foraminal stenosis. He has progressively worsening neck pain along with radiculopathy C6-C7 left more than right. P: Pt was thinking about his options and states he would like to proceed with surgery. Continue with medical management for now and will discuss with medical team if he is cleared medically for surgery. If so possible surgery later this week. Ivan Haney Mar 29, 2017 09:56
--- NOTE | 2017-03-29 11:36 | HHI.PR ---
Subjective Remarks doing ok. asking for neck surgery Objective Vitals heart reg lung cta abd s/nt ext no edema Vital Signs Date Time Temp Pulse Resp B/P Pulse Ox O2 Delivery O2 Flow Rate FiO2 03/29/17 08:00 97.7 73 17 128/76 98 03/29/17 04:00 97.0 63 18 117/61 97 03/29/17 01:00 98.7 54 18 117/58 97 03/28/17 19:30 98.1 58 20 110/59 96 03/28/17 18:00 58 03/28/17 16:00 97.8 62 18 121/61 99 03/28/17 12:00 96.7 71 18 157/69 100 03/28/17 03/28/17 03/29/17 15:00 23:00 07:00 Intake Total 120 ml Balance 120 ml Intake Oral 120 ml # Voids 5 1 # Bowel Movements 1 Result Diagram: 03/27/17 0151 03/27/17 0151 Imaging Last Impressions Cervical Spine MRI 03/27/17 0000 Signed Impressions: Service Date/Time: Monday, March 27, 2017 20:50 - CONCLUSION: 1. Central canal stenosis at the C5-6 level secondary to disc bulge with obliteration of the CSF surrounding the cord. 2. Borderline central canal stenosis at the C4-5 level secondary to disc bulge. 3. Mild disc bulge at C3-4 with mild flattening of the anterior cord. 4. Mild disc bulge at C6-7. 5. Narrowing of the neural foramina bilaterally at C5-6 and C4-5. Boone Sykes MD Chest X-Ray 03/26/17 1139 Signed Impressions: Service Date/Time: Sunday, March 26, 2017 12:08 - CONCLUSION: No acute disease. No significant change has occurred. Tee Aviles MD Head CT 03/26/17 0000 Signed Impressions: Service Date/Time: Sunday, March 26, 2017 18:12 - CONCLUSION: No acute abnormality seen. 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 Tyler Edouard MD Carotid Artery Ultrasound 03/26/17 0000 Signed Impressions: Service Date/Time: Sunday, March 26, 2017 19:10 - CONCLUSION: No significant stenosis of the internal carotid arteries bilaterally. Greater than 70%% stenosis of the right ECA and 50-69%% stenosis of the left ECA. Anderson Miller MD Last Impressions Chest X-Ray 03/26/17 1139 Signed Impressions: Service Date/Time: Sunday, March 26, 2017 12:08 - CONCLUSION: No acute disease. No significant change has occurred. Tee Aviles MD Head CT 03/26/17 0000 Signed Impressions: Service Date/Time: Sunday, March 26, 2017 18:12 - CONCLUSION: No acute abnormality seen. 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 Tyler Edouard MD Carotid Artery Ultrasound 03/26/17 0000 Signed Impressions: Service Date/Time: Sunday, March 26, 2017 19:10 - CONCLUSION: No significant stenosis of the internal carotid arteries bilaterally. Greater than 70%% stenosis of the right ECA and 50-69%% stenosis of the left ECA. Anderson Miller MD Last Impressions Chest X-Ray 03/26/17 1139 Signed Impressions: Service Date/Time: Sunday, March 26, 2017 12:08 - CONCLUSION: No acute disease. No significant change has occurred. Tee Aviles MD A/P Problem List: (1) Cervical stenosis of spine Status: Acute Plan: - Pt is a 71 y/o with CAD/Hx of NM s/p CABG in 1994, HTN, hyperlipidemia , and KYRA. - Pt presented after a near syncopal episode with associated nausea, diaphoresis while outside yesterday. He denies any associated chest pain at that time. Family reports that he has been having episodes similar to this with the dizziness and nausea intermittently for the last few months. It doesn't necessarily happen with exertion or with certain movements of the head. He does report that is does frequently happen with bending over. - He also has reported that he has been having issues with numbness and pain in the left arm that radiates into his chest for the past 4 years intermittently but that in the last few months this has been more frequently occurring and more severe in intensity. He had a severe episode the day prior to admission. Pt reports that he has had issues with her cervical spine in the past and had previously seen a Neurologist 4 years ago regarding this. - CT brain (03/26) --> No acute abnormal findings. - Carotid US (03/26) --> No significant stenosis of the internal carotid arteries bilaterally. Greater than 70% stenosis of the right ECA and 50-69% stenosis of the left ECA. - TSH, free T4, b12, folate are WNL - Telemetry without any abnormalities as of 03/27 - 2D echocardiogram --> pending. - Holter Monitor --> Pending. - PT evaluation - Serial cardiac enzymes were negative. - He had a previous myocardial perfusion scan on 03-05-15 that showed mild redistribution along the anterolateral wall with an EF of 61%. He had a cardiac cath on 03-05-15 and it showed a patent SVG to the RCA (the RCA was totally occluded at its origin). The LAD and circumflex were normal. - MRI cervical spine (03/27) --> Central canal stenosis at the C5-6 level secondary to disc bulge with obliteration of the CSF surrounding the cord. Borderline central canal stenosis at the C4-5 level secondary to disc bulge. Mild disc bulge at C3-4 with mild flattening of the anterior cord. Mild disc bulge at C6-7. Narrowing of the neural foramina bilaterally at C5-6 and C4-5. -Lexiscan neg for ischemia. - DVT prophylaxis with SCDs Pt planned for surgery on Monday with NSG. medically stable to proceed. (2) Near syncope Status: Acute (3) CAD (coronary artery disease) Status: Acute Plan: - h/o 1V CABG in the - last [facility] 2014 - ASA, metoprolol, crestor (4) GERD (gastroesophageal reflux disease) Status: Chronic Plan: - ranitidine (5) HTN (hypertension) Status: Chronic Plan: - metoprolol, losartan (6) CKD (chronic kidney disease) stage 2, GFR 60-89 ml/min Status: Chronic Plan: - observe Problem Qualifiers (1) CAD (coronary artery disease): Qualified Code: I25.10 - Coronary artery disease involving andreafski heart without angina pectoris, unspecified vessel or lesion type (2) GERD (gastroesophageal reflux disease): Qualified Code: K21.9 - Gastroesophageal reflux disease, esophagitis presence not specified (3) HTN (hypertension): Qualified Code: I10 - Essential hypertension Tevin Saxena MD Mar 29, 2017 11:36
[2017-03-29] MEDS: ATORVASTATIN 20 MG TAB PO SCH (22:13)
[2017-03-30] VITALS (8 sets, daily range): BP systolic 122–159; BP diastolic 56–78; PULSE 56–76; RESP 18–22; TEMP 95.8–98.1; O2SAT 98–100
[2017-03-30] MEDS: SODIUM CHLORIDE 0.9% FLUSH 10 ML FLUSH IV FLUSH SCH ×3 (01:02→21:28)
[2017-03-30] MEDS: ASPIRIN 325 MG TAB PO SCH (09:00)
--- NOTE | 2017-03-30 09:05 | HHI.NSPN ---
History Chief Complaint: Neck pain and UE pain. Interval History 71-year-old gentleman with a chronic history of neck pain with radiation into the left upper extremity diffusely on the whole hand and occasionally on the right side also. He relates that he has had these symptoms for the past four years which have been progressively worsening. He also noticed a cramping in his hands at night time especially, and with any activity severe pain from his neck to the left upper extremity in particular. He suffers from chronic vertigo, dizziness and lightheadedness. He has some unsteadiness related to that. He denies any bowel or bladder incontinence. He relates seeing Dr. Tomlin from neurology several years ago. She informed him that he had pinched nerves in his neck and recommended neurosurgical evaluation but he held off on that. He also saw Dr. Ferrer from hand surgery over a year ago for similar complaints in the left upper extremity, and for the possibility of thoracic outlet syndrome, which he did not think was the case and felt that this was coming from his cervical spine and also recommended neurosurgical intervention. He relates that he has had physical therapy in the past which has not helped, and any activity seems to aggravate his symptoms and he cannot live with the current level of discomfort and activity restriction and his and son are at the bedside and agree with this. The relates that she has been trying to get him to see a neurosurgeon for several years. He was admitted on 03/26/2017 after he presented to the emergency room with complaints of near-syncopal episode after working in his yard and felt that he may be dehydrated, was nauseous and diaphoretic. He also complained of neck pain radiating to the left upper extremity along with a brief episode of chest pain. Cardiac workup has been negative with troponin levels of less than 0.02 and he also had a myocardial perfusion, nuclear medicine, cardiac scan which reveals a small fixed inferolateral perfusion abnormality. He was on chronic aspirin therapy which he stopped two weeks ago since he was bruising all over, although has been resumed since his admission. Carotid ultrasound does not reveal any internal carotid artery stenosis with external carotid artery right greater than left stenosis. Echocardiogram revealed an ejection fraction of 50-55% with normal left ventricular size and mild left ventricular hypertrophy. Apparently he also had a cardiac catheterization done in July 2015 which did not reveal any significant coronary stenosis. MRI scan was also obtained yesterday which reveals a moderate cervical spinal stenosis at C4-C5 from a central disk osteophyte complexes as well as C5-C6 with significant left-sided C5-6 foraminal stenosis. The spinal canal at both levels is reduced down to less than 8 mm. There is a mild C3-C4 central disk protrusion and mild stenosis but no cord compression is noted. Mild disk protrusion at C6-C7 level also. Neurosurgery has been consulted for the management of this cervical stenosis. 03/29/17: Pt awake and alert. Complains of intermittent neck pain and bilateral UE pain left more than right. States pain radiates into the lateral aspect of the UEs with associated paresthesias and radiates into the hands. Intermittently gets cramping in his hands bilaterally. Exam Results Vital Signs Date Time Temp Pulse Resp B/P Pulse Ox O2 Delivery O2 Flow Rate FiO2 03/30/17 08:33 95.8 76 20 159/78 99 03/26/17 11:36 Room Air Intake and Output 03/29/17 03/29/17 03/30/17 08:00 16:00 00:00 Intake Total 600 ml Balance 600 ml Physical Examination Resp: CTA bilaterally Heart: NSR no murmurs Abd: Soft positive bs Skin: No cyanosis or erythema Muscle: Moves all 4 extremities well. Neuro: Pt awake and alert. Follows commands well. Speech clear and appropriate. Medical Decision Making Impression and Plan A: 71 y/o M with cervical stenosis, in particular C4-C5, C5-C6 with disk osteophyte complex and spinal cord compression with associated foraminal stenosis. He has progressively worsening neck pain along with radiculopathy C6-C7 left more than right. P: Pt was thinking about his options and states he would like to proceed with surgery. Continue with medical management for now and will discuss with medical team if he is cleared medically for surgery. If so possible surgery later this week. Ivan Haney Mar 30, 2017 09:05
[2017-03-30] MEDS: FAMOTIDINE 20 MG TAB PO SCH ×2 (09:11→21:27)
[2017-03-30] MEDS: METOPROLOL TARTRATE 25 MG TAB PO SCH ×2 (09:11→21:27)
--- NOTE | 2017-03-30 09:11 | HHI.NSPN ---
(Ivan Hanye) History Chief Complaint: Neck pain and UE pain. (Ivan Haney) Interval History 71-year-old gentleman with a chronic history of neck pain with radiation into the left upper extremity diffusely on the whole hand and occasionally on the right side also. He relates that he has had these symptoms for the past four years which have been progressively worsening. He also noticed a cramping in his hands at night time especially, and with any activity severe pain from his neck to the left upper extremity in particular. He suffers from chronic vertigo, dizziness and lightheadedness. He has some unsteadiness related to that. He denies any bowel or bladder incontinence. He relates seeing Dr. Tomlin from neurology several years ago. She informed him that he had pinched nerves in his neck and recommended neurosurgical evaluation but he held off on that. He also saw Dr. Ferrer from hand surgery over a year ago for similar complaints in the left upper extremity, and for the possibility of thoracic outlet syndrome, which he did not think was the case and felt that this was coming from his cervical spine and also recommended neurosurgical intervention. He relates that he has had physical therapy in the past which has not helped, and any activity seems to aggravate his symptoms and he cannot live with the current level of discomfort and activity restriction and his and son are at the bedside and agree with this. The relates that she has been trying to get him to see a neurosurgeon for several years. He was admitted on 03/26/2017 after he presented to the emergency room with complaints of near-syncopal episode after working in his yard and felt that he may be dehydrated, was nauseous and diaphoretic. He also complained of neck pain radiating to the left upper extremity along with a brief episode of chest pain. Cardiac workup has been negative with troponin levels of less than 0.02 and he also had a myocardial perfusion, nuclear medicine, cardiac scan which reveals a small fixed inferolateral perfusion abnormality. He was on chronic aspirin therapy which he stopped two weeks ago since he was bruising all over, although has been resumed since his admission. Carotid ultrasound does not reveal any internal carotid artery stenosis with external carotid artery right greater than left stenosis. Echocardiogram revealed an ejection fraction of 50-55% with normal left ventricular size and mild left ventricular hypertrophy. Apparently he also had a cardiac catheterization done in July 2015 which did not reveal any significant coronary stenosis. MRI scan was also obtained yesterday which reveals a moderate cervical spinal stenosis at C4-C5 from a central disk osteophyte complexes as well as C5-C6 with significant left-sided C5-6 foraminal stenosis. The spinal canal at both levels is reduced down to less than 8 mm. There is a mild C3-C4 central disk protrusion and mild stenosis but no cord compression is noted. Mild disk protrusion at C6-C7 level also. Neurosurgery has been consulted for the management of this cervical stenosis. 03/29/17: Pt awake and alert. Complains of intermittent neck pain and bilateral UE pain left more than right. States pain radiates into the lateral aspect of the UEs with associated paresthesias and radiates into the hands. Intermittently gets cramping in his hands bilaterally. 03/30/17: Pt awake and alert. Complains of intermittent neck and bilateral left more than right pain. States pain controlled when he isn't doing anything. Had some cramping in hands yesterday. He states he is ready for surgery tomorrow. (Ivan Haney) Review of Systems General: Negative for: fever, chills, insomnia Respiratory: Negative for: shortness of breath, cough, sputum Cardiovascular: Negative for: chest pain Gastrointestinal: Negative for: nausea, vomitting, diarrhea, constipation ( Ivan Haney) Exam Results Vital Signs Date Time Temp Pulse Resp B/P Pulse Ox O2 Delivery O2 Flow Rate FiO2 03/30/17 08:33 95.8 76 20 159/78 99 03/26/17 11:36 Room Air Intake and Output 03/29/17 03/29/17 03/30/17 08:00 16:00 00:00 Intake Total 600 ml Balance 600 ml (Ivan Haney) Physical Examination Resp: CTA bilaterally Heart: NSR no murmurs Abd: Soft positive bs Skin: No cyanosis or erythema Muscle: Moves all 4 extremities well. Neuro: Pt awake and alert. Follows commands well. Speech clear and appropriate. (Ivan Haney) Lab, Micro, Other Results Last Impressions Myocardial Perfusion Scan Nuc Med 03/28/17 0000 Signed Impressions: Service Date/Time: Tuesday, March 28, 2017 08:49 - CONCLUSION: Small fixed inferolateral perfusion abnormality. RISK CATEGORY: Low (<1%% Annual Mortality Rate) Tyler Doe MD Cervical Spine MRI 03/27/17 0000 Signed Impressions: Service Date/Time: Monday, March 27, 2017 20:50 - CONCLUSION: 1. Central canal stenosis at the C5-6 level secondary to disc bulge with obliteration of the CSF surrounding the cord. 2. Borderline central canal stenosis at the C4-5 level secondary to disc bulge. 3. Mild disc bulge at C3-4 with mild flattening of the anterior cord. 4. Mild disc bulge at C6-7. 5. Narrowing of the neural foramina bilaterally at C5-6 and C4-5. Boone Sykes MD Chest X-Ray 03/26/17 1139 Signed Impressions: Service Date/Time: Sunday, March 26, 2017 12:08 - CONCLUSION: No acute disease. No significant change has occurred. Tee Aviles MD Head CT 03/26/17 0000 Signed Impressions: Service Date/Time: Sunday, March 26, 2017 18:12 - CONCLUSION: No acute abnormality seen. 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 Tyler Edouard MD Carotid Artery Ultrasound 03/26/17 0000 Signed Impressions: Service Date/Time: Sunday, March 26, 2017 19:10 - CONCLUSION: No significant stenosis of the internal carotid arteries bilaterally. Greater than 70%% stenosis of the right ECA and 50-69%% stenosis of the left ECA. Anderson Miller MD 03/29/17 03/29/17 03/30/17 15:00 23:00 07:00 Intake Total 600 ml Balance 600 ml Intake Oral 600 ml # Voids 5 # Bowel Movements 2 (Ivan Haney) Medical Decision Making Impression and Plan A: 71 y/o M with cervical stenosis, in particular C4-C5, C5-C6 with disk osteophyte complex and spinal cord compression with associated foraminal stenosis. He has progressively worsening neck pain along with radiculopathy C6-C7 left more than right. P: Surgery planned for tomorrow C4/C5 and C5/C6 ACF. Discussed procedure, risks, benefits with pt. Discussed recovery time and restrictions. Pt understands and wants to proceed. He is scheduled for surgery tomorrow. (Ivan Haney) Attending Statement The exam, history, and the medical decision-making described in the above note were completed with the assistance of the mid-level provider. I reviewed and agree with the findings presented. I attest that I had a [id number] encounter with the patient on the same day, and personally performed and documented my assessment and findings in the medical record. Discussed the procedure of anterior C4-5 and C5-6 microdiscectomy with fusion and plate placement along the risks and benefits involved as well as option of nonsurgical management. Patient and his requesting to proceed with surgery and gave informed consent. He has chronic hoarseness and he understands that this could worsen along with dysphagia with the surgery. Surgery scheduled for tomorrow morning. (Shaka Up MD) Ivan Haney Mar 30, 2017 09:11 Shaka Up MD Mar 30, 2017 17:39
--- NOTE | 2017-03-30 09:37 | HHI.PR ---
Subjective Remarks no complaints. eager to get surgery. Objective Vitals heart reg lung cta abd s/nt ext no edema Vital Signs Date Time Temp Pulse Resp B/P Pulse Ox O2 Delivery O2 Flow Rate FiO2 03/30/17 08:33 95.8 76 20 159/78 99 03/30/17 08:00 57 03/30/17 04:00 97.3 65 22 134/67 99 03/30/17 00:00 97.4 56 18 122/56 98 03/29/17 20:00 98.5 58 18 119/62 97 03/29/17 18:50 68 03/29/17 17:34 68 03/29/17 14:00 97.8 60 18 127/62 99 03/29/17 12:00 97.7 65 17 145/67 97 03/29/17 03/29/17 03/30/17 15:00 23:00 07:00 Intake Total 600 ml Balance 600 ml Intake Oral 600 ml # Voids 5 # Bowel Movements 2 Result Diagram: 03/27/17 0151 03/27/17 0151 Imaging Last Impressions Cervical Spine MRI 03/27/17 0000 Signed Impressions: Service Date/Time: Monday, March 27, 2017 20:50 - CONCLUSION: 1. Central canal stenosis at the C5-6 level secondary to disc bulge with obliteration of the CSF surrounding the cord. 2. Borderline central canal stenosis at the C4-5 level secondary to disc bulge. 3. Mild disc bulge at C3-4 with mild flattening of the anterior cord. 4. Mild disc bulge at C6-7. 5. Narrowing of the neural foramina bilaterally at C5-6 and C4-5. Boone Sykes MD Chest X-Ray 03/26/17 1139 Signed Impressions: Service Date/Time: Sunday, March 26, 2017 12:08 - CONCLUSION: No acute disease. No significant change has occurred. Tee Aviles MD Head CT 03/26/17 0000 Signed Impressions: Service Date/Time: Sunday, March 26, 2017 18:12 - CONCLUSION: No acute abnormality seen. 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 Tyler Edouard MD Carotid Artery Ultrasound 03/26/17 0000 Signed Impressions: Service Date/Time: Sunday, March 26, 2017 19:10 - CONCLUSION: No significant stenosis of the internal carotid arteries bilaterally. Greater than 70%% stenosis of the right ECA and 50-69%% stenosis of the left ECA. Anderson Miller MD Last Impressions Chest X-Ray 03/26/17 1139 Signed Impressions: Service Date/Time: Sunday, March 26, 2017 12:08 - CONCLUSION: No acute disease. No significant change has occurred. Tee Aviles MD Head CT 03/26/17 0000 Signed Impressions: Service Date/Time: Sunday, March 26, 2017 18:12 - CONCLUSION: No acute abnormality seen. 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 Tyler Edouard MD Carotid Artery Ultrasound 03/26/17 0000 Signed Impressions: Service Date/Time: Sunday, March 26, 2017 19:10 - CONCLUSION: No significant stenosis of the internal carotid arteries bilaterally. Greater than 70%% stenosis of the right ECA and 50-69%% stenosis of the left ECA. Anderson Miller MD Last Impressions Chest X-Ray 03/26/17 1139 Signed Impressions: Service Date/Time: Sunday, March 26, 2017 12:08 - CONCLUSION: No acute disease. No significant change has occurred. Tee Aviles MD A/P Problem List: (1) Cervical stenosis of spine Status: Acute Plan: - Pt is a 71 y/o with CAD/Hx of [place] s/p CABG in 1994, HTN, hyperlipidemia , and KYRA. - Pt presented after a near syncopal episode with associated nausea, diaphoresis while outside working in yard He denies any associated chest pain at that time. Family reports that he has been having episodes similar to this with the dizziness and nausea intermittently for the last few months. It doesn't necessarily happen with exertion or with certain movements of the head. He does report that is does frequently happen with bending over. - He also has reported that he has been having issues with numbness and pain in the left arm that radiates into his chest for the past 4 years intermittently but that in the last few months this has been more frequently occurring and more severe in intensity. He had a severe episode the day prior to admission. Pt reports that he has had issues with her cervical spine in the past and had previously seen a Neurologist 4 years ago regarding this. - CT brain (03/26) --> No acute abnormal findings. - Carotid US (03/26) --> No significant stenosis of the internal carotid arteries bilaterally. Greater than 70% stenosis of the right ECA and 50-69% stenosis of the left ECA. - TSH, free T4, b12, folate are WNL - Telemetry without any abnormalities as of 03/27 - 2D echocardiogram --> pending. - Holter Monitor --> Pending. - PT evaluation - Serial cardiac enzymes were negative. - He had a previous myocardial perfusion scan on 03-05-15 that showed mild redistribution along the anterolateral wall with an EF of 61%. He had a cardiac cath on 03-05-15 and it showed a patent SVG to the RCA (the RCA was totally occluded at its origin). The LAD and circumflex were normal. - MRI cervical spine (03/27) --> Central canal stenosis at the C5-6 level secondary to disc bulge with obliteration of the CSF surrounding the cord. Borderline central canal stenosis at the C4-5 level secondary to disc bulge. Mild disc bulge at C3-4 with mild flattening of the anterior cord. Mild disc bulge at C6-7. Narrowing of the neural foramina bilaterally at C5-6 and C4-5. -Lexiscan neg for ischemia. - DVT prophylaxis with SCDs Pt planned for surgery on Monday with NSG. medically stable to proceed. (2) Near syncope Status: Acute (3) CAD (coronary artery disease) Status: Acute Plan: - h/o 1V CABG in the - last [facility] 2014 - ASA, metoprolol, crestor (4) GERD (gastroesophageal reflux disease) Status: Chronic Plan: - ranitidine (5) HTN (hypertension) Status: Chronic Plan: - metoprolol, losartan (6) CKD (chronic kidney disease) stage 2, GFR 60-89 ml/min Status: Chronic Plan: - observe Problem Qualifiers (1) CAD (coronary artery disease): Qualified Code: I25.10 - Coronary artery disease involving quechan heart without angina pectoris, unspecified vessel or lesion type (2) GERD (gastroesophageal reflux disease): Qualified Code: K21.9 - Gastroesophageal reflux disease, esophagitis presence not specified (3) HTN (hypertension): Qualified Code: I10 - Essential hypertension Tevin Saxena MD Mar 30, 2017 09:36
[2017-03-30] MEDS: LOSARTAN 25 MG TAB PO SCH (21:27)
[2017-03-30] MEDS: ATORVASTATIN 20 MG TAB PO SCH (21:27)
[2017-03-31] VITALS (8 sets, daily range): BP systolic 135–162; BP diastolic 68–75; PULSE 55–95; RESP 18–20; TEMP 96.3–98.3; O2SAT 97–99
[2017-03-31] MEDS ORDERED: LACTATED RINGER'S 1000 ML IV PRN (05:15)
[2017-03-31] MEDS ORDERED: POVIDONE IODINE 5% (ANTISEPSIS KIT) 4 APPLICATIONS EACH NARE PRN (05:15)
[2017-03-31] MEDS ORDERED: SODIUM CHLORID 0.9% 500 ML IV PRN (05:15)
[2017-03-31] MEDS ORDERED: CHLORHEXIDINE GLUCONATE 2 % 1 PACK (2 CLOTHS) TOPICAL PRN (05:15)
[2017-03-31] MEDS ORDERED: VANCOMYCIN HCL 1000 MG VIAL ONE ×2 (06:49→11:25)
[2017-03-31] MEDS ORDERED: methylPREDNISolone ACETATE 40 MG/ML VIAL ONE (06:49)
[2017-03-31] MEDS ORDERED: GELFOAM SIZE 100 ONE (06:49)
[2017-03-31] MEDS ORDERED: THROMBIN (TOPICAL) 5,000 UNIT VIAL ONE (06:49)
[2017-03-31] MEDS ORDERED: BUPIVACAINE/EPINEPHRINE 0.5% 50 ML VIAL ONE (06:49)
[2017-03-31] MEDS: SODIUM CHLORIDE 0.9% FLUSH 10 ML FLUSH IV FLUSH SCH ×2 (07:59→21:00)
[2017-03-31] MEDS: ASPIRIN 325 MG TAB PO SCH (07:59)
[2017-03-31] MEDS: FAMOTIDINE 20 MG TAB PO SCH ×2 (07:59→21:46)
[2017-03-31] MEDS: METOPROLOL TARTRATE 25 MG TAB PO SCH ×2 (07:59→21:46)
--- NOTE | 2017-03-31 09:09 | HHI.PR ---
Subjective Remarks doing well no new complaints Objective Vitals heart reg lung cta abd s/nt ext no edema Vital Signs Date Time Temp Pulse Resp B/P Pulse Ox O2 Delivery O2 Flow Rate FiO2 03/31/17 08:03 96.7 88 20 156/68 99 03/31/17 07:36 58 03/31/17 07:36 58 03/31/17 04:00 98.3 63 20 136/75 99 03/31/17 00:00 98.0 55 20 142/73 99 03/30/17 20:00 67 03/30/17 20:00 98.1 70 20 133/74 99 03/30/17 15:42 97.1 74 20 138/64 99 03/30/17 15:00 74 03/30/17 15:00 74 03/30/17 12:25 97.5 66 20 140/69 100 03/30/17 03/30/17 03/31/17 15:00 23:00 07:00 Intake Total 960 ml Balance 960 ml Intake Oral 960 ml # Voids 6 2 # Bowel Movements 0 0 Result Diagram: 03/27/17 0151 03/27/17 0151 Imaging Last Impressions Cervical Spine MRI 03/27/17 0000 Signed Impressions: Service Date/Time: Monday, March 27, 2017 20:50 - CONCLUSION: 1. Central canal stenosis at the C5-6 level secondary to disc bulge with obliteration of the CSF surrounding the cord. 2. Borderline central canal stenosis at the C4-5 level secondary to disc bulge. 3. Mild disc bulge at C3-4 with mild flattening of the anterior cord. 4. Mild disc bulge at C6-7. 5. Narrowing of the neural foramina bilaterally at C5-6 and C4-5. Boone Sykes MD Chest X-Ray 03/26/17 1139 Signed Impressions: Service Date/Time: Sunday, March 26, 2017 12:08 - CONCLUSION: No acute disease. No significant change has occurred. Tee Aviles MD Head CT 03/26/17 0000 Signed Impressions: Service Date/Time: Sunday, March 26, 2017 18:12 - CONCLUSION: No acute abnormality seen. 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 Tyler Edouard MD Carotid Artery Ultrasound 03/26/17 0000 Signed Impressions: Service Date/Time: Sunday, March 26, 2017 19:10 - CONCLUSION: No significant stenosis of the internal carotid arteries bilaterally. Greater than 70%% stenosis of the right ECA and 50-69%% stenosis of the left ECA. Anderson Miller MD Last Impressions Chest X-Ray 03/26/17 1139 Signed Impressions: Service Date/Time: Sunday, March 26, 2017 12:08 - CONCLUSION: No acute disease. No significant change has occurred. Tee Aviles MD Head CT 03/26/17 0000 Signed Impressions: Service Date/Time: Sunday, March 26, 2017 18:12 - CONCLUSION: No acute abnormality seen. 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 Tyler Edouard MD Carotid Artery Ultrasound 03/26/17 0000 Signed Impressions: Service Date/Time: Sunday, March 26, 2017 19:10 - CONCLUSION: No significant stenosis of the internal carotid arteries bilaterally. Greater than 70%% stenosis of the right ECA and 50-69%% stenosis of the left ECA. Anderson Miller MD Last Impressions Chest X-Ray 03/26/17 1139 Signed Impressions: Service Date/Time: Sunday, March 26, 2017 12:08 - CONCLUSION: No acute disease. No significant change has occurred. Tee Aviles MD A/P Problem List: (1) Cervical stenosis of spine Status: Acute Plan: - Pt is a 71 y/o with CAD/Hx of [place] s/p CABG in 1994, HTN, hyperlipidemia , and KYRA. - Pt presented after a near syncopal episode with associated nausea, diaphoresis while outside working in yard He denies any associated chest pain at that time. Family reports that he has been having episodes similar to this with the dizziness and nausea intermittently for the last few months. It doesn't necessarily happen with exertion or with certain movements of the head. He does report that is does frequently happen with bending over. - He also has reported that he has been having issues with numbness and pain in the left arm that radiates into his chest for the past 4 years intermittently but that in the last few months this has been more frequently occurring and more severe in intensity. He had a severe episode the day prior to admission. Pt reports that he has had issues with her cervical spine in the past and had previously seen a Neurologist 4 years ago regarding this. - CT brain (03/26) --> No acute abnormal findings. - Carotid US (03/26) --> No significant stenosis of the internal carotid arteries bilaterally. Greater than 70% stenosis of the right ECA and 50-69% stenosis of the left ECA. - TSH, free T4, b12, folate are WNL - Telemetry without any abnormalities as of 03/27 - 2D echocardiogram --> pending. - Holter Monitor --> Pending. - PT evaluation - Serial cardiac enzymes were negative. - He had a previous myocardial perfusion scan on 03-05-15 that showed mild redistribution along the anterolateral wall with an EF of 61%. He had a cardiac cath on 03-05-15 and it showed a patent SVG to the RCA (the RCA was totally occluded at its origin). The LAD and circumflex were normal. - MRI cervical spine (03/27) --> Central canal stenosis at the C5-6 level secondary to disc bulge with obliteration of the CSF surrounding the cord. Borderline central canal stenosis at the C4-5 level secondary to disc bulge. Mild disc bulge at C3-4 with mild flattening of the anterior cord. Mild disc bulge at C6-7. Narrowing of the neural foramina bilaterally at C5-6 and C4-5. -Lexiscan neg for ischemia. - DVT prophylaxis with SCDs to OR today for cervical surgery. (2) Near syncope Status: Acute (3) CAD (coronary artery disease) Status: Acute Plan: - h/o 1V CABG in the - last [facility] 2014 - ASA, metoprolol, crestor (4) GERD (gastroesophageal reflux disease) Status: Chronic Plan: - ranitidine (5) HTN (hypertension) Status: Chronic Plan: - metoprolol, losartan (6) CKD (chronic kidney disease) stage 2, GFR 60-89 ml/min Status: Chronic Plan: - observe Problem Qualifiers (1) CAD (coronary artery disease): Qualified Code: I25.10 - Coronary artery disease involving mohegan heart without angina pectoris, unspecified vessel or lesion type (2) GERD (gastroesophageal reflux disease): Qualified Code: K21.9 - Gastroesophageal reflux disease, esophagitis presence not specified (3) HTN (hypertension): Qualified Code: I10 - Essential hypertension Tevin Saxena MD Mar 31, 2017 09:09
[2017-03-31] MEDS ORDERED: MIDAZOLAM HCL 2 MG/2 ML VIAL ONE (11:10)
[2017-03-31] MEDS ORDERED: KETAMINE HCL 500 MG/5 ML VIAL ONE (11:14)
[2017-03-31] MEDS ORDERED: ONDANSETRON HCL 4 MG/2 ML VIAL IV PUSH ONE (12:00)
[2017-03-31] MEDS ORDERED: PROPOFOL 200 MG/20 ML AMP IV ONE (12:00)
[2017-03-31] MEDS ORDERED: NORMOSOL R INJ 1,000 ML IV ONE (12:00)
[2017-03-31] MEDS ORDERED: ePHEDrine/NS 25 MG/5 ML SYR IV ONE (12:00)
[2017-03-31] MEDS ORDERED: DO NOT ADM ANY ANTICOAGULANT DRUGS PRN (14:26)
[2017-03-31] MEDS ORDERED: HYDR-3366 PO (14:26)
[2017-03-31] MEDS ORDERED: MAGNESIUM HYDROXIDE SUSP 30 ML CUP PO PRN (14:30)
[2017-03-31] MEDS ORDERED: MENTHOL LOZENGE BUCCAL PRN (14:30)
[2017-03-31] MEDS ORDERED: ALUMINUM/MAGNESIUM/SIMETH 30 ML CUP PO PRN (14:30)
[2017-03-31] MEDS ORDERED: ACETAMINOPHEN/HYDROcodone 325 MG/10 MG TAB PO PRN (14:30)
[2017-03-31] MEDS ORDERED: SODIUM CHLORIDE 0.9% FLUSH 10 ML FLUSH IV FLUSH PRN (14:30)
[2017-03-31] MEDS ORDERED: ONDANSETRON HCL 4 MG/2 ML VIAL IV PRN (14:30)
[2017-03-31] MEDS ORDERED: MORPHINE SULFATE 4 MG/ML INJ IV PRN (14:30)
[2017-03-31] MEDS ORDERED: CYCLOBENZAPRINE HCL 10 MG TAB PO PRN (14:30)
[2017-03-31] MEDS ORDERED: METOCLOPRAMIDE HCL 10 MG/2 ML VIAL IVS PRN (14:30)
[2017-03-31] MEDS ORDERED: cloNIDine HCL 0.1 MG TAB PO PRN (14:30)
[2017-03-31] MEDS ORDERED: RESP: ALBUTEROL 2.5 MG/3 ML NEB (PRN) NEB (14:30)
[2017-03-31] MEDS ORDERED: ZOLPIDEM TARTRATE 5 MG TAB PO PRN (14:30)
[2017-03-31] MEDS ORDERED: fentaNYL CITRATE 250 MCG/5 ML AMP ONE (14:32)
--- NOTE | 2017-03-31 14:32 | PD.OP ---
cc: Michael Rod MD Operative Report Date of Surgery: Mar 31, 2017 Preoperative Diagnosis: C4-5 and C5-6 disc osteophyte complex with associated spinal and foraminal stenosis with intractable neck pain and left upper extremity polyradiculopathy Postoperative Diagnosis: Same Procedure: Anterior cervical C4-5 and C5-6 micro-discectomy with interbody fusion; anterior C4-C6 cervical plate placement; C4-5 and C5-6 interbody cage placement ; microsurgical technique Anesthesia: Gen. endotracheal by Chris Corbett Surgeon: Shaka Up M.D. Client Relations Specialist(s): Zaynab Echeverria Operation and Findings: Following administration of general endotracheal anesthesia with the neck maintained in a [place] J collar in neutral position, the patient received a gram of vancomycin and Decadron 10 mg intravenously. Sequential compression devices were placed in supine position on a Kevin table and all pressure points adequately padded. A Anton catheter was also placed. The head secured in a donut and anterior cervical region then shaved and prepped with Chloraprep and sterilely draped with Ioban along with the usual sterile draping. A transverse skin incision on the left side of the neck was then made after infiltrating the skin with 0.5% Marcaine with epinephrine solution extending down through the platysma. At the anterior border of the sternocleidomastoid further dissection was undertaken developing a plane between the carotid sheath laterally and the trachea esophagus medially. The prevertebral fascia was exposed and dissected out. The medial attachments of the longus colli muscles were detached and a self-retaining retractor used for exposure. The C4-5 disc space was localized with a marking the disc space and using lateral fluoroscopy. Weiner distraction screws 14 mm length were placed one in the C4 and one in the C6 body interbody distraction and exposure. There was significant disc degeneration with disc height collapse and anterior osteophytes noted at the C4-5 and C5-6 levels and the osteophytes were resected with a Leksell and annulus incised with a 15 blade and further dissection undertaken using microtechnique with microscope magnification. Diskectomy was undertaken with pituitaries and the endplates were also decorticated with curettes and drill bit. And more posteriorly there was disk osteophyte complex compressing the thecal sac along with a significant uncovertebral joint hypertrophy with foraminal stenosis which was decompressed along with removal of the posterior longitudinal ligaments at both levels. The foramen was decompressed bilaterally using a Kerrison's and palpation with a nerve hook, the exiting nerve roots were felt to be free. The area was then copiously irrigated. I then placed a Peek cage packed with local autograft bone at the C4 -5 and C5-6 interspaces under fluoroscopy guidance. Weiner distraction pins were removed and the holes plugged with Gelfoam for hemostasis. In order to facilitate the fusion and provide stabilization, a Precision spine cervical plate was then placed with two 14 mm variable angle screws in the C4 and C5 bodies and two 14 mm fixed angle screws in the C6 body. The plate screw locking mechanism was then engaged. AP and lateral fluoroscopy confirmed good placement of the construct and the retractor was then removed. Muscular bleeding points were cauterized with bipolar cautery and Gelfoam was then also used for hemostasis which was removed. The platysma was then approximated using 3-0 Vicryl interrupted stitches and 3-0 Vicryl subcuticular stitch also placed in an interrupted fashion, and final skin closure was with Mastisol and Steri- Strips. Sterile dressing was then applied. The neck immobilized in a [place] J collar. The patient was then extubated and taken to the recovery room. There are no intraoperative complications and all sponge and needle counts were correct at the end of procedure. Estimated blood loss was about 100 cc. The patient did undergo intraoperative neurologic monitoring which remained stable throughout the surgery. Shaka Up MD Mar 31, 2017 14:32
[2017-03-31] MEDS ORDERED: *morphine SULFATE 8 MG/ML PERIprocedure ONLY ONE (14:59)
[2017-03-31] MEDS: NS + KCL 20 MEQ INJ 1,000 ML IV SCH (15:00)
--- NOTE | 2017-03-31 15:29 | RADRPT ---
EXAM DATE/TIME: 03/31/2017 11:21 [facility] COMPARISON: No previous studies available for comparison. INDICATIONS : Post-op C4-C5-C6 anterior cervical fusion. MEDICAL HISTORY : None. SURGICAL HISTORY : None. ENCOUNTER: Initial ACUITY: 4 - 6 days PAIN SCORE: Non-responsive. LOCATION: neck FINDINGS: Two projection examination was performed. There is normal alignment and curvature of the vertebral b odies down to the level of C7. Alignment is anatomic across the fused segment from C4-C6. CONCLUSION: Anatomic alignment. Holland Blevins MD FACR on March 31, 2017 at 15:26 Board Certified Radiologist. This report was verified electronically.
--- NOTE | 2017-03-31 15:30 | RADRPT ---
EXAM DATE/TIME: 03/31/2017 11:21 [facility] COMPARISON: No previous studies available for comparison. INDICATIONS : C4-C5-C6 anterior cervical fusion. Level localization. MEDICAL HISTORY : None. SURGICAL HISTORY : None. ENCOUNTER: Initial ACUITY: 4 - 6 days PAIN SCORE: Non-responsive. LOCATION: neck FINDINGS/CONCLUSION: Probe is at the C4-C5 level. Holland Blevins MD FACR on March 31, 2017 at 15:27 Board Certified Radiologist. This report was verified electronically.
[2017-03-31] MEDS: DEXAMETHASONE SOD PHOS 4 MG/ML VIAL IV SCH (17:04)
[2017-03-31] MEDS: ACETAMINOPHEN/HYDROcodone 325 MG/10 MG TAB PO PRN ×2 (17:04→21:48)
[2017-03-31] MEDS: LOSARTAN 25 MG TAB PO SCH (21:46)
[2017-03-31] MEDS: ATORVASTATIN 20 MG TAB PO SCH (21:46)
[2017-03-31] MEDS: DOCUSATE SODIUM 100 MG CAP PO SCH (21:46)
[2017-04-01] MEDS: NS + KCL 20 MEQ INJ 1,000 ML IV SCH (01:00)
[2017-04-01] MEDS: DEXAMETHASONE SOD PHOS 4 MG/ML VIAL IV SCH ×2 (01:22→04:47)
[2017-04-01 03:08] VITALS: BP 119/58; PULSE 78; RESP 18; TEMP 98; O2SAT 97
[2017-04-01 05:30] VITALS: BP 123/88; PULSE 71; RESP 18; TEMP 97.7; O2SAT 98
[2017-04-01] MEDS: DOCUSATE SODIUM 100 MG CAP PO SCH (07:56)
[2017-04-01] MEDS: FAMOTIDINE 20 MG TAB PO SCH (07:56)
[2017-04-01] MEDS: SODIUM CHLORIDE 0.9% FLUSH 10 ML FLUSH IV FLUSH SCH (07:56)
[2017-04-01] MEDS: METOPROLOL TARTRATE 25 MG TAB PO SCH (07:56)
[2017-04-01 08:00] VITALS: BP 136/74; PULSE 76; RESP 17; TEMP 97.4; O2SAT 98
[2017-04-01] MEDS ORDERED: ASPIRIN 325 MG TAB PO SCH (09:00)
[2017-04-01 09:33] VITALS: PULSE 58
--- NOTE | 2017-04-01 10:01 | HHI.PR ---
Subjective Remarks in chair. eager for d/c denies any significant pain Objective Vitals neck collar heart reg lung cta abd s/nt ext no edema Vital Signs Date Time Temp Pulse Resp B/P Pulse Ox O2 Delivery O2 Flow Rate FiO2 04/01/17 09:33 58 04/01/17 08:00 97.4 76 17 136/74 98 04/01/17 05:30 97.7 71 18 123/88 98 04/01/17 03:08 98.0 78 18 119/58 97 03/31/17 20:00 97.5 95 18 135/70 97 03/31/17 19:00 86 03/31/17 16:20 96.3 86 20 162/72 97 03/31/17 16:20 96.3 86 20 97 03/31/17 15:25 97.6 74 16 145/69 96 Room Air 03/31/17 15:15 75 15 146/74 95 Room Air 03/31/17 15:04 15 03/31/17 15:00 86 03/31/17 15:00 86 03/31/17 15:00 74 15 147/77 99 Nasal Cannula 2 03/31/17 14:45 76 15 149/74 95 Nasal Cannula 2 03/31/17 14:30 78 15 147/69 95 Nasal Cannula 2 03/31/17 14:25 97.5 79 20 149/72 100 Nasal Cannula 3 03/31/17 03/31/17 04/01/17 15:00 23:00 07:00 Intake Total 1800 ml 100 ml Output Total 75 ml 150 ml 2400 ml Balance 1725 ml -50 ml -2400 ml Intake Oral 0 ml IV Total 100 ml Other 1800 ml Output Urine Total 150 ml 2400 ml Estimated Blood Loss 75 ml Imaging Last Impressions Cervical Spine MRI 03/27/17 0000 Signed Impressions: Service Date/Time: Monday, March 27, 2017 20:50 - CONCLUSION: 1. Central canal stenosis at the C5-6 level secondary to disc bulge with obliteration of the CSF surrounding the cord. 2. Borderline central canal stenosis at the C4-5 level secondary to disc bulge. 3. Mild disc bulge at C3-4 with mild flattening of the anterior cord. 4. Mild disc bulge at C6-7. 5. Narrowing of the neural foramina bilaterally at C5-6 and C4-5. Boone Sykes MD Chest X-Ray 03/26/17 1139 Signed Impressions: Service Date/Time: Sunday, March 26, 2017 12:08 - CONCLUSION: No acute disease. No significant change has occurred. Tee Aviles MD Head CT 03/26/17 0000 Signed Impressions: Service Date/Time: Sunday, March 26, 2017 18:12 - CONCLUSION: No acute abnormality seen. 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 Tyler Edouard MD Carotid Artery Ultrasound 03/26/17 0000 Signed Impressions: Service Date/Time: Sunday, March 26, 2017 19:10 - CONCLUSION: No significant stenosis of the internal carotid arteries bilaterally. Greater than 70%% stenosis of the right ECA and 50-69%% stenosis of the left ECA. Anderson Miller MD Last Impressions Chest X-Ray 03/26/17 1139 Signed Impressions: Service Date/Time: Sunday, March 26, 2017 12:08 - CONCLUSION: No acute disease. No significant change has occurred. Tee Aviles MD Head CT 03/26/17 0000 Signed Impressions: Service Date/Time: Sunday, March 26, 2017 18:12 - CONCLUSION: No acute abnormality seen. 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 Tyler Edouard MD Carotid Artery Ultrasound 03/26/17 0000 Signed Impressions: Service Date/Time: Sunday, March 26, 2017 19:10 - CONCLUSION: No significant stenosis of the internal carotid arteries bilaterally. Greater than 70%% stenosis of the right ECA and 50-69%% stenosis of the left ECA. Anderson Miller MD Last Impressions Chest X-Ray 03/26/17 1139 Signed Impressions: Service Date/Time: Sunday, March 26, 2017 12:08 - CONCLUSION: No acute disease. No significant change has occurred. Tee Aviles MD A/P Problem List: (1) Cervical stenosis of spine Status: Acute Plan: - Pt is a 71 y/o with CAD/Hx of [place] s/p CABG in 1994, HTN, hyperlipidemia , and KYRA. - Pt presented after a near syncopal episode with associated nausea, diaphoresis while outside working in yard He denies any associated chest pain at that time. Family reports that he has been having episodes similar to this with the dizziness and nausea intermittently for the last few months. It doesn't necessarily happen with exertion or with certain movements of the head. He does report that is does frequently happen with bending over. - He also has reported that he has been having issues with numbness and pain in the left arm that radiates into his chest for the past 4 years intermittently but that in the last few months this has been more frequently occurring and more severe in intensity. He had a severe episode the day prior to admission. Pt reports that he has had issues with her cervical spine in the past and had previously seen a Neurologist 4 years ago regarding this. - CT brain (03/26) --> No acute abnormal findings. - Carotid US (03/26) --> No significant stenosis of the internal carotid arteries bilaterally. Greater than 70% stenosis of the right ECA and 50-69% stenosis of the left ECA. - TSH, free T4, b12, folate are WNL - Telemetry without any abnormalities as of 03/27 - 2D echocardiogram --> pending. - Holter Monitor --> Pending. - PT evaluation - Serial cardiac enzymes were negative. - He had a previous myocardial perfusion scan on 03-05-15 that showed mild redistribution along the anterolateral wall with an EF of 61%. He had a cardiac cath on 03-05-15 and it showed a patent SVG to the RCA (the RCA was totally occluded at its origin). The LAD and circumflex were normal. - MRI cervical spine (03/27) --> Central canal stenosis at the C5-6 level secondary to disc bulge with obliteration of the CSF surrounding the cord. Borderline central canal stenosis at the C4-5 level secondary to disc bulge. Mild disc bulge at C3-4 with mild flattening of the anterior cord. Mild disc bulge at C6-7. Narrowing of the neural foramina bilaterally at C5-6 and C4-5. -Lexiscan neg for ischemia. -s/p Anterior cervical C4-5 and C5-6 micro-discectomy with interbody fusion; anterior C4-C6 cervical plate placement; C4-5 and C5-6 interbody cage placement d/c when ok with nsg. (2) Near syncope Status: Acute (3) CAD (coronary artery disease) Status: Acute Plan: - h/o 1V CABG in the - last [facility] 2014 - ASA, metoprolol, crestor (4) GERD (gastroesophageal reflux disease) Status: Chronic Plan: - ranitidine (5) HTN (hypertension) Status: Chronic Plan: - metoprolol, losartan (6) CKD (chronic kidney disease) stage 2, GFR 60-89 ml/min Status: Chronic Plan: - observe Problem Qualifiers (1) CAD (coronary artery disease): Qualified Code: I25.10 - Coronary artery disease involving ruby heart without angina pectoris, unspecified vessel or lesion type (2) GERD (gastroesophageal reflux disease): Qualified Code: K21.9 - Gastroesophageal reflux disease, esophagitis presence not specified (3) HTN (hypertension): Qualified Code: I10 - Essential hypertension Tevin Saxena MD Apr 01, 2017 10:01
--- NOTE | 2017-04-01 10:02 | HHI.DCPOC ---
Discharge Care Plan Diagnosis: (1) Cervical stenosis of spine (2) HTN (hypertension) (3) CAD (coronary artery disease) Goals to Promote Your Health * To prevent worsening of your condition and complications * To maintain your health at the optimal level Directions to Meet Your Goals Take your medications as prescribed Follow your dietary instruction Follow activity as directed Keep your appointments as scheduled Take your immunizations and boosters as scheduled If your symptoms worsen call your PCP, if no PCP go to Urgent Care Center or Emergency Room Smoking is Dangerous to Your Health. Avoid second hand smoke Call the 24-hour hour crisis hotline for domestic abuse at Tevin Saxena MD Apr 01, 2017 10:02
--- NOTE | 2017-04-01 11:20 | HHI.NSPN ---
Note Status Status: Progress Note Interval History Interval History 71-year-old gentleman with a chronic history of neck pain with radiation into the left upper extremity diffusely on the whole hand and occasionally on the right side also. He relates that he has had these symptoms for the past four years which have been progressively worsening. He also noticed a cramping in his hands at night time especially, and with any activity severe pain from his neck to the left upper extremity in particular. He suffers from chronic vertigo, dizziness and lightheadedness. He has some unsteadiness related to that. He denies any bowel or bladder incontinence. He relates seeing Dr. Tomlin from neurology several years ago. She informed him that he had pinched nerves in his neck and recommended neurosurgical evaluation but he held off on that. He also saw Dr. Ferrer from hand surgery over a year ago for similar complaints in the left upper extremity, and for the possibility of thoracic outlet syndrome, which he did not think was the case and felt that this was coming from his cervical spine and also recommended neurosurgical intervention. He relates that he has had physical therapy in the past which has not helped, and any activity seems to aggravate his symptoms and he cannot live with the current level of discomfort and activity restriction and his and son are at the bedside and agree with this. The relates that she has been trying to get him to see a neurosurgeon for several years. He was admitted on 03/26/2017 after he presented to the emergency room with complaints of near-syncopal episode after working in his yard and felt that he may be dehydrated, was nauseous and diaphoretic. He also complained of neck pain radiating to the left upper extremity along with a brief episode of chest pain. Cardiac workup has been negative with troponin levels of less than 0.02 and he also had a myocardial perfusion, nuclear medicine, cardiac scan which reveals a small fixed inferolateral perfusion abnormality. He was on chronic aspirin therapy which he stopped two weeks ago since he was bruising all over, although has been resumed since his admission. Carotid ultrasound does not reveal any internal carotid artery stenosis with external carotid artery right greater than left stenosis. Echocardiogram revealed an ejection fraction of 50-55% with normal left ventricular size and mild left ventricular hypertrophy. Apparently he also had a cardiac catheterization done in July 2015 which did not reveal any significant coronary stenosis. MRI scan was also obtained yesterday which reveals a moderate cervical spinal stenosis at C4-C5 from a central disk osteophyte complexes as well as C5-C6 with significant left-sided C5-6 foraminal stenosis. The spinal canal at both levels is reduced down to less than 8 mm. There is a mild C3-C4 central disk protrusion and mild stenosis but no cord compression is noted. Mild disk protrusion at C6-C7 level also. Neurosurgery has been consulted for the management of this cervical stenosis. 03/29/17: Pt awake and alert. Complains of intermittent neck pain and bilateral UE pain left more than right. States pain radiates into the lateral aspect of the UEs with associated paresthesias and radiates into the hands. Intermittently gets cramping in his hands bilaterally. 03/30/17: Pt awake and alert. Complains of intermittent neck and bilateral left more than right pain. States pain controlled when he isn't doing anything. Had some cramping in hands yesterday. He states he is ready for surgery tomorrow. 04/01: POD 1, s/p C6-[address] Up, he is doing well, resting comfortably, pain controlled, denies neuro changes. Labs, Micro, & Vital Signs Results Date Time Temp Pulse Resp B/P Pulse Ox O2 Delivery O2 Flow Rate FiO2 04/01/17 09:33 58 04/01/17 08:00 97.4 76 17 136/74 98 04/01/17 05:30 97.7 71 18 123/88 98 04/01/17 03:08 98.0 78 18 119/58 97 03/31/17 20:00 97.5 95 18 135/70 97 03/31/17 19:00 86 03/31/17 16:20 96.3 86 20 162/72 97 03/31/17 16:20 96.3 86 20 97 03/31/17 15:25 97.6 74 16 145/69 96 Room Air 03/31/17 15:15 75 15 146/74 95 Room Air 03/31/17 15:04 15 03/31/17 15:00 86 03/31/17 15:00 86 03/31/17 15:00 74 15 147/77 99 Nasal Cannula 2 03/31/17 14:45 76 15 149/74 95 Nasal Cannula 2 03/31/17 14:30 78 15 147/69 95 Nasal Cannula 2 03/31/17 14:25 97.5 79 20 149/72 100 Nasal Cannula 3 04/01/17 07:00 Intake Total 1900 ml Output Total 2625 ml Balance -725 ml Constitutional Vital Signs Date Time Temp Pulse Resp B/P Pulse Ox O2 Delivery O2 Flow Rate FiO2 04/01/17 09:33 58 04/01/17 08:00 97.4 76 17 136/74 98 04/01/17 05:30 97.7 71 18 123/88 98 04/01/17 03:08 98.0 78 18 119/58 97 03/31/17 20:00 97.5 95 18 135/70 97 03/31/17 19:00 86 03/31/17 16:20 96.3 86 20 162/72 97 03/31/17 16:20 96.3 86 20 97 03/31/17 15:25 97.6 74 16 145/69 96 Room Air 03/31/17 15:15 75 15 146/74 95 Room Air 03/31/17 15:04 15 03/31/17 15:00 86 03/31/17 15:00 86 03/31/17 15:00 74 15 147/77 99 Nasal Cannula 2 03/31/17 14:45 76 15 149/74 95 Nasal Cannula 2 03/31/17 14:30 78 15 147/69 95 Nasal Cannula 2 03/31/17 14:25 97.5 79 20 149/72 100 Nasal Cannula 3 04/01/17 07:00 Intake Total 1900 ml Output Total 2625 ml Balance -725 ml Review of Systems/Exam Exam Alert oriented. Speech is fluent. Wound clean and dry with dressing in place. Neck: immobilized by [place] collar Motor: moves all four extremities well Medications Current Medications Current Medications Medications (Trade) Dose Ordered Sig/Marta Route PRN Reason Start Time Stop Time Status Last Admin Dose Admin Acetaminophen (Tylenol) 650 mg Q4H PRN PO TEMP > 100.4 03/26/17 14:00 Temazepam (Restoril) 15 mg HS PRN PO INSOMNIA 03/26/17 21:00 Naloxone HCl (Narcan Inj) 0.4 mg UNSCH PRN IV SEE LABEL COMMENTS 03/26/17 13:15 Nitroglycerin (Nitrostat Sl) 0.4 mg Q5M PRN SL ANGINA 03/26/17 13:30 Losartan Potassium (Cozaar) 25 mg HS PO 03/26/17 21:00 03/31/17 21:46 Metoprolol Tartrate (Lopressor) 25 mg BID PO 03/26/17 21:00 04/01/17 07:56 Famotidine (Pepcid) 20 mg BID PO 03/26/17 21:00 04/01/17 07:56 Atorvastatin Calcium (Lipitor) 20 mg HS PO 03/26/17 21:00 03/31/17 21:46 Sodium Chloride (NS Flush) 2 ml UNSCH PRN IV FLUSH FLUSH AFTER USING IV ACCESS 03/31/17 14:30 Sodium Chloride (NS Flush) 2 ml BID IV FLUSH 03/31/17 21:00 03/31/17 21:00 Docusate Sodium (Colace) 100 mg BID PO 03/31/17 21:00 04/01/17 07:56 Magnesium Hydroxide (Milk Of Magnesia Liq) 30 ml DAILY PRN PO CONSTIPATION 03/31/17 14:30 Al Hydrox/Mg Hydrox/Simethicone (Mag-Al Plus Susp Liq) 30 ml Q6H PRN PO DYSPEPSIA 03/31/17 14:30 Metoclopramide HCl (Reglan Inj) 10 mg Q8H PRN IVS nausea if zofran ineffective 03/31/17 14:30 Ondansetron HCl (Zofran Inj) 4 mg Q6H PRN IV NAUSEA OR VOMITING 03/31/17 14:30 Acetaminophen/ Hydrocodone Bitart ([place] 10-325 Mg) 1 tab Q4H PRN PO PAIN SCALE 1 TO 5 03/31/17 14:30 Acetaminophen/ Hydrocodone Bitart ([place] 10-325 Mg) 2 tab Q4H PRN PO PAIN SCALE 6 TO 10 03/31/17 14:30 03/31/17 21:48 Morphine Sulfate (Morphine Inj) 2 mg Q2H PRN IV breakthrough pain> 6 03/31/17 14:30 Cyclobenzaprine HCl (Flexeril) 10 mg Q8H PRN PO MUSCLE SPASM 03/31/17 14:30 Clonidine (Catapres) 0.1 mg Q6H PRN PO SYS BP GREATER THAN 170 MMHG 03/31/17 14:30 Menthol ([place]) 1 lozenge UNSCH PRN BUCCAL SORE THROAT 03/31/17 14:30 Zolpidem Tartrate (Ambien) 5 mg HS PRN PO INSOMNIA 03/31/17 14:30 Aspirin (Aspirin) 325 mg DAILY PO 04/01/17 09:00 04/01/17 07:56 Miscellaneous Information ALL NURSING DEPARTME... UNSCH PRN .XX SEE LABEL COMMENTS 03/31/17 14:26 04/01/17 14:25 Medical Decision Making MDM Remarks 71 y/o male s/p C5-6 ACDF, POD 1, doing well Plan Plan Remarks doing well, neuro stable patient clear for discharge activity restrictions discussed, maintain [place] collar, f/u Dr. Up next week Marjorie Valdivia Apr 01, 2017 11:20
[2017-04-01 12:00] VITALS: BP 132/64; PULSE 68; RESP 16; TEMP 98.1; O2SAT 96
== END 2017-04-01 13:22 | disposition home or self-care (01) | DRG 473 ==
LOC: NEPE 11:29 → INTOOBSV 13:27 → NEDA 13:27 → N05B 14:52 → OBSVTOIN 03-31 07:09
PROVIDERS: ADMIT Hospitalist; ATTEND Hospitalist
PROC: 0RT30ZZ Resection of Cervical Vertebral Disc, Open Approach (ICD-10-PCS; 2017-03-31)
PROC: 0RG20A0 Fusion of 2 or more Cervical Vertebral Joints with Interbody Fusion Device, Anterior Approach, Anterior Column, Open Approach (ICD-10-PCS; principal; 2017-03-31 11:12)
DX: M50.121 Cervical disc disorder at C4-C5 level with radiculopathy (principal); I25.82 Chronic total occlusion of coronary artery; K76.0 Fatty (change of) liver, not elsewhere classified; I25.10 Atherosclerotic heart disease of native coronary artery without angina pectoris; E78.5 Hyperlipidemia, unspecified; G47.33 Obstructive sleep apnea (adult) (pediatric); K21.9 Gastro-esophageal reflux disease without esophagitis; I12.9 Hypertensive chronic kidney disease with stage 1 through stage 4 chronic kidney disease, or unspecified chronic kidney disease; M25.78 Osteophyte, vertebrae; N18.2 Chronic kidney disease, stage 2 (mild); E56.1 Deficiency of vitamin K; R42 Dizziness and giddiness; I25.2 Old myocardial infarction; Z95.1 Presence of aortocoronary bypass graft; Z87.891 Personal history of nicotine dependence; Z79.82 Long term (current) use of aspirin
CPT/HCPCS: 70450; 71010; 72020; 72040; 72141; 76000; 78452; 80048; 82140; 82550; 82552; 82607; 82746; 83735; 83880; 84439; 84443; 84484; 85025; 85610; 85730; 86592; 93005; 93017; 93225; 93226; 93306; 93880; 94150; A9502; C1713; G0378; J0690; J1030; J1100; J2250; J2270; J2405; J2785; J3010; J3370; J3480; L0150; L0172